=== PATIENT | male | born 1955 | race Caucasian/White ===

== ENCOUNTER 2019-11-30 12:15 | Emergency (ER) | payer MEDICAID ==
[~2019-11-30] VITALS: Ht 180.3 cm; Wt 76.7 kg
[2019-11-30] MEDS ORDERED: LIDOcaine 1% w/epiNEPHrine 1:200,000 30ml vial IJ ONE (12:45)
[2019-11-30] MEDS ORDERED: TETanus/Pertussis (Acell)/Diphther VAC/PF (Tdap-Adult) 0.5ml syringe IMVAC ONE (12:45)
[2019-11-30 15:03] VITALS: BP 114/98
== END 2019-11-30 15:05 | disposition home or self-care (01) ==
LOC: ER 12:16
DX: S01.112A Laceration without foreign body of left eyelid and periocular area, initial encounter (principal); F10.129 Alcohol abuse with intoxication, unspecified; G89.29 Other chronic pain; F12.90 Cannabis use, unspecified, uncomplicated; F17.200 Nicotine dependence, unspecified, uncomplicated; Z72.89 Other problems related to lifestyle; W18.39XA Other fall on same level, initial encounter; Y93.89 Activity, other specified; Y92.89 Other specified places as the place of occurrence of the external cause; Y99.8 Other external cause status; Y90.0 Blood alcohol level of less than 20 mg/100 ml
CPT/HCPCS: 12011; 36415; 70450; 80320; 90471; 90715; 99284

== ENCOUNTER 2020-05-13 13:37 | Emergency (ER) | payer MEDICARE, MEDICAID ==
[~2020-05-13] VITALS: Ht 170.2 cm; Wt 68.2 kg
[2020-05-13] MEDS ORDERED: normal saline 1000ML IV soln IVB ONE ×3 (15:50→18:15)
--- NOTE | 2020-05-13 15:52 | NUR ---
Pt. given sandwich and juice
[2020-05-13 15:58] LABS: BASOPHILS % (AUTO) 0.7 % (0-1); EOSINOPHILS % (AUTO) 0 % (0-6); LYMPHOCYTES # (AUTO) 1.3 X10'3 (1.1-4.8); LYMPHOCYTES % (AUTO) 20.7 % (21-51); MEAN CORPUSCULAR HEMOGLOBIN 32.8 PG (27.0-31.0); MEAN CORPUSCULAR HGB CONC 32.5 g/dL (33.0-36.5); MEAN CORPUSCULAR VOLUME 100.8 FL (78-98); MEAN PLATELET VOLUME 8.4 FL (7.4-10.4); MONOCYTES # (AUTO) 0.4 X10'3 (0-0.9); NEUTROPHILS # (AUTO) 4.5 X10'3 (1.8-7.7); NEUTROPHILS % (AUTO) 71.6 % (42-75); PLATELET COUNT 315 X10'3 (140-440); RED BLOOD COUNT 4.56 X10'6 (4.70-6.10); RED CELL DISTRIBUTION WIDTH 15.1 % (11.5-14.5); WHITE BLOOD COUNT 6.3 X10'3 (4.5-11.0)
[2020-05-13 16:20] LABS: ALANINE AMINOTRANSFERASE 24 U/L (12-78); ALBUMIN 4.7 G/DL (3.4-5.0); ALBUMIN/GLOBULIN RATIO 1.1 (1.1-1.5); ALKALINE PHOSPHATASE 85 IU/L (46-116); ANION GAP 16 (8-16); ASPARTATE AMINO TRANSFERASE 38 U/L (10-37); BILIRUBIN,TOTAL 0.4 MG/DL (0.1-1.0); BLOOD UREA NITROGEN 17 MG/DL (7-18); CHLORIDE 103 MMOL/L (99-107); CREATININE 0.85 MG/DL (0.60-1.10); GLUCOSE 86 MG/DL (70-104); POTASSIUM 5.3 MMOL/L (3.5-5.1); SODIUM 145 MMOL/L (135-145); TOTAL CARBON DIOXIDE 25.9 MMOL/L (24-32); TOTAL PROTEIN 8.9 G/DL (6.4-8.2); eGFR 90 ML/MIN
[2020-05-13 18:27] LABS: URINE AMPHETAMINE SCREEN NEGATIVE (Neg); URINE BARBITUATE SCREEN NEGATIVE (Neg); URINE BENZODIAZEPINES SCREEN NEGATIVE (Neg); URINE CANNABINOID SCREEN POSITIVE (Neg); URINE COCAINE SCREEN NEGATIVE (Neg); URINE METHADONE SCREEN NEGATIVE (Neg); URINE OPIATE SCREEN NEGATIVE (Neg); URINE PHENCYCLIDINE SCREEN NEGATIVE (Neg)
--- NOTE | 2020-05-13 18:32 | NUR ---
BROTHERS # [phone]. LIVES IN [place].
[2020-05-13 20:12] VITALS: BP 137/94
== END 2020-05-13 20:05 | disposition home or self-care (01) ==
LOC: ER 13:37
DX: M79.604 Pain in right leg (principal); M79.605 Pain in left leg; E86.0 Dehydration; G89.29 Other chronic pain; F12.90 Cannabis use, unspecified, uncomplicated; Z72.89 Other problems related to lifestyle
CPT/HCPCS: 36415; 80053; 80305; 83605; 85025; 93005; 96360; 96361; 99285; J7030

== ENCOUNTER 2020-07-18 16:10 | Emergency (ER) | payer MEDICARE, MEDICAID | END 2020-07-18 17:56 | disposition left against medical advice (07) | LOC: ER 16:11 | DX: Z53.21 Procedure and treatment not carried out due to patient leaving prior to being seen by health care provider (principal); W19.XXXA Unspecified fall, initial encounter; Y93.89 Activity, other specified; Y92.89 Other specified places as the place of occurrence of the external cause; Y99.8 Other external cause status ==

== ENCOUNTER 2020-08-23 12:13 | Emergency (ER) | payer MEDICARE, MEDICAID ==
[~2020-08-23] VITALS: Ht 182.9 cm; Wt 68.2 kg
[2020-08-23] MEDS ORDERED: LIDOcaine 1% W/epiNEPHrine 1:200,000 10ml vial IJ ONE (12:30)
[2020-08-23] MEDS ORDERED: TETanus/Pertussis (Acell)/Diphther VAC/PF (Tdap-Adult) 0.5ml syringe IMVAC ONE (12:30)
--- NOTE | 2020-08-23 12:55 | NUR ---
to ct scan.
[2020-08-23 14:37] VITALS: BP 138/96
== END 2020-08-23 14:57 | disposition home or self-care (01) ==
LOC: ER 12:14
DX: S01.01XA Laceration without foreign body of scalp, initial encounter (principal); G89.29 Other chronic pain; F12.90 Cannabis use, unspecified, uncomplicated; Z72.89 Other problems related to lifestyle; W05.0XXA Fall from non-moving wheelchair, initial encounter; Z91.81 History of falling; Y93.89 Activity, other specified; Y92.89 Other specified places as the place of occurrence of the external cause; Y99.8 Other external cause status
CPT/HCPCS: 12002; 70450; 72125; 90471; 90715; 99285

== ENCOUNTER 2020-10-22 19:39 | Inpatient (IN) | payer MEDICARE, MEDICAID ==
[~2020-10-22] VITALS: Ht 172.7 cm; Wt 68.0 kg
[2020-10-22 20:21] LABS: BASOPHILS % (AUTO) 0.1 % (0-1); EOSINOPHILS % (AUTO) 0.1 % (0-6); HEMATOCRIT 39.4 % (42.0-52.0); HEMOGLOBIN 13.1 g/dl (14.0-17.9); LYMPHOCYTES # (AUTO) 0.5 X10'3 (1.1-4.8); LYMPHOCYTES % (AUTO) 3.7 % (21-51); MEAN CORPUSCULAR HGB CONC 33.1 g/dL (33.0-36.5); MEAN CORPUSCULAR VOLUME 99.5 FL (78-98); MEAN PLATELET VOLUME 7.4 FL (7.4-10.4); MONOCYTES # (AUTO) 1.3 X10'3 (0-0.9); MONOCYTES % (AUTO) 8.6 % (2-12); NEUTROPHILS % (AUTO) 87.5 % (42-75); PLATELET COUNT 322 X10'3 (140-440); RED BLOOD COUNT 3.96 X10'6 (4.70-6.10); RED CELL DISTRIBUTION WIDTH 14.1 % (11.5-14.5); WHITE BLOOD COUNT 14.8 X10'3 (4.5-11.0)
[2020-10-22 20:46] LABS: ALANINE AMINOTRANSFERASE 11 U/L (12-78); ALBUMIN 3.3 G/DL (3.4-5.0); ALBUMIN/GLOBULIN RATIO 0.6 (1.1-1.5); ALKALINE PHOSPHATASE 76 IU/L (46-116); ANION GAP 11 (8-16); ASPARTATE AMINO TRANSFERASE 14 U/L (10-37); BILIRUBIN,TOTAL 0.4 MG/DL (0.1-1.0); BLOOD UREA NITROGEN 14 MG/DL (7-18); BUN/CREATININE RATIO 10.6 (5.4-32.0); CALCIUM 9.2 MG/DL (8.5-10.1); CHLORIDE 94 MMOL/L (99-107); CREATININE 1.32 MG/DL (0.60-1.10); GLUCOSE 98 MG/DL (70-104); POTASSIUM 3.9 MMOL/L (3.5-5.1); SODIUM 129 MMOL/L (135-145); TOTAL CARBON DIOXIDE 23.7 MMOL/L (24-32); TOTAL PROTEIN 8.8 G/DL (6.4-8.2); eGFR 54 ML/MIN
[2020-10-23] MEDS ORDERED: piperacillin/tazo 3.375gm/50ml 50 ML IV ONE (01:05)
[2020-10-23] MEDS ORDERED: normal saline 1000ML IV soln IVB ONE ×2 (01:05)
[2020-10-23] MEDS ORDERED: vancomycin/NS 1 GM ADD-VANTAGE 250 ML IV ONE (01:05)
[2020-10-23] MEDS ORDERED: morphine 4 MG/ML inj SYRINge IV ONE (01:10)
[2020-10-23] MEDS ORDERED: ondansetron/PF 4mg/2ml inj IV ONE (01:10)
[2020-10-23] MEDS ORDERED: acetaminophen 325mg tablet PO PRN (02:00)
[2020-10-23] MEDS: normal saline 1000ml 1,000 ML IV SCH ×3 (02:00→22:00)
[2020-10-23] MEDS ORDERED: potassium Cl 40MEQ/1/2NS 520ml 520 ML IV PRN ×2 (02:00)
[2020-10-23] MEDS ORDERED: potassium Cl 20 mEq SR tablet PO PRN (02:00)
[2020-10-23] MEDS ORDERED: ondansetron/PF 4mg/2ml inj IV PRN (02:00)
[2020-10-23] MEDS ORDERED: magnesium hydroxide 30ml (MOM) UD suspension PO PRN (02:00)
[2020-10-23] MEDS ORDERED: mag hydrox/Alum hydrox/simeth 30ml oral suspension PO PRN (02:00)
[2020-10-23] MEDS ORDERED: thiamine 100mg/ml 2ml inj. IV ONE (02:10)
[2020-10-23] MEDS ORDERED: PANT20TA18 PO (02:51)
[2020-10-23] MEDS ORDERED: SILV25CR21 TOP (02:51)
[2020-10-23] MEDS ORDERED: AMIT10TA6 PO (02:51)
[2020-10-23] MEDS ORDERED: ALPR-624 PO (02:53)
[2020-10-23] MEDS ORDERED: AMIT-189 PO (02:53)
--- NOTE | 2020-10-23 05:05 | NUR ---
ROUNDED ON PT; PT IN NAD WITH VSS; PT RESTING COMFORTABLY; WILL CTM AND REASSESS
[2020-10-23 05:17] LABS: COLOR,URINE YELLOW (Yellow); UA COLLECTION TYPE VOIDED
[2020-10-23 05:18] LABS: CLARITY,URINE CLEAR (Clear); GLUCOSE, URINE NEGATIVE (Neg); KETONES,URINE NEGATIVE (Neg); OCCULT BLOOD,URINE NEGATIVE (Neg); PH,URINE 6.5 (4.8-8.0); PROTEIN,URINE NEGATIVE (Neg)
[2020-10-23 05:19] LABS: LEUKOCYTE ESTERASE ,URINE NEGATIVE (Neg); NITRITES, URINE NEGATIVE (Neg); UROBILINOGEN,URINE 0.2 E.U/dL (0.2-1.0)
[2020-10-23] MEDS: morphine 2 MG/ML inj. syringe IV PRN ×2 (07:17→21:37)
[2020-10-23] MEDS: K and/or MAG REPLACEMENT MC SCH ×2 (07:30→19:59)
[2020-10-23] MEDS: docusate sod 100mg capsule PO SCH ×2 (07:46→20:00)
[2020-10-23] MEDS: piperacillin/tazo 3.375gm/50ml 50 ML IV SCH ×2 (07:46→16:46)
[2020-10-23] MEDS: pantoprazole 40mg Tablet.DR PO SCH (07:46)
[2020-10-23] MEDS: heparin, porcine 5000 units/ml vial SQ SCH ×2 (07:46→21:38)
[2020-10-23] MEDS: vancomycin/NS 1 GM ADD-VANTAGE 250 ML IV SCH (14:41)
[2020-10-23 18:00] VITALS: BP 144/79
[2020-10-23] MEDS: lactobacillus rhamnosus 10,000 MMU CELLS/CAPSULE PO SCH (21:36)
[2020-10-23] MEDS: amitriptyline 50mg tablet PO SCH (21:36)
[2020-10-23] MEDS ORDERED: vancomycin/NS 1 GM ADD-VANTAGE 250 ML IV SCH (23:00)
[2020-10-23 23:25] VITALS: BP 149/85
[2020-10-24] MEDS: piperacillin/tazo 3.375gm/50ml 50 ML IV SCH ×3 (01:00→17:35)
[2020-10-24] MEDS: vancomycin/NS 1 GM ADD-VANTAGE 250 ML IV SCH ×3 (02:27→21:52)
[2020-10-24 06:47] LABS: BASOPHILS % (AUTO) 0.3 % (0-1); EOSINOPHILS # (AUTO) 0.1 X10'3 (0-0.9); EOSINOPHILS % (AUTO) 0.4 % (0-6); HEMATOCRIT 33.5 % (42.0-52.0); LYMPHOCYTES # (AUTO) 0.5 X10'3 (1.1-4.8); LYMPHOCYTES % (AUTO) 4.1 % (21-51); MEAN CORPUSCULAR HEMOGLOBIN 32.9 PG (27.0-31.0); MEAN CORPUSCULAR HGB CONC 32.9 g/dL (33.0-36.5); MEAN PLATELET VOLUME 7.5 FL (7.4-10.4); MONOCYTES # (AUTO) 1.5 X10'3 (0-0.9); MONOCYTES % (AUTO) 11.4 % (2-12); NEUTROPHILS # (AUTO) 10.6 X10'3 (1.8-7.7); NEUTROPHILS % (AUTO) 83.8 % (42-75); PLATELET COUNT 279 X10'3 (140-440); RED BLOOD COUNT 3.35 X10'6 (4.70-6.10); RED CELL DISTRIBUTION WIDTH 14.2 % (11.5-14.5); WHITE BLOOD COUNT 12.7 X10'3 (4.5-11.0)
--- NOTE | 2020-10-24 06:53 | NUR ---
Patient in room [facility]. I have received report from Florinda CARO and had the opportunity to ask questions and assume patient care.
--- NOTE | 2020-10-24 06:54 | NUR ---
Problems reprioritized. Patient report given, questions answered & plan of care reviewed with Kimmie CARO.
[2020-10-24 06:59] LABS: ALANINE AMINOTRANSFERASE 9 U/L (12-78); ALBUMIN/GLOBULIN RATIO 0.5 (1.1-1.5); ALKALINE PHOSPHATASE 68 IU/L (46-116); ANION GAP 10 (8-16); ASPARTATE AMINO TRANSFERASE 18 U/L (10-37); BILIRUBIN,TOTAL 0.4 MG/DL (0.1-1.0); BLOOD UREA NITROGEN 6 MG/DL (7-18); BUN/CREATININE RATIO 10.5 (5.4-32.0); CALCIUM 8.2 MG/DL (8.5-10.1); CHLORIDE 101 MMOL/L (99-107); CREATININE 0.57 MG/DL (0.60-1.10); GLUCOSE 89 MG/DL (70-104); POTASSIUM 3.4 MMOL/L (3.5-5.1); SODIUM 134 MMOL/L (135-145); TOTAL CARBON DIOXIDE 23.5 MMOL/L (24-32); TOTAL PROTEIN 6.3 G/DL (6.4-8.2); eGFR > 90 ML/MIN
--- NOTE | 2020-10-24 07:02 | NUR ---
Assumed patient care. Did not receive report.
--- NOTE | 2020-10-24 07:05 | NUR ---
Patient in room [facility]. I have received report from Kimmie CARO and had the opportunity to ask questions and assume patient care.
[2020-10-24] MEDS: morphine 2 MG/ML inj. syringe IV PRN ×4 (07:32→21:41)
[2020-10-24] MEDS: heparin, porcine 5000 units/ml vial SQ SCH ×2 (07:34→21:13)
[2020-10-24] MEDS: docusate sod 100mg capsule PO SCH ×2 (07:35→21:10)
[2020-10-24] MEDS: lactobacillus rhamnosus 10,000 MMU CELLS/CAPSULE PO SCH ×2 (07:35→20:00)
[2020-10-24] MEDS: potassium Cl 20 mEq SR tablet PO PRN ×2 (07:36→16:51)
[2020-10-24] MEDS: pantoprazole 40mg Tablet.DR PO SCH (07:36)
[2020-10-24 08:00] VITALS: BP 140/76
[2020-10-24] MEDS: K and/or MAG REPLACEMENT MC SCH ×2 (08:16→19:02)
[2020-10-24] MEDS: normal saline 1000ml 1,000 ML IV SCH ×2 (08:17→18:00)
--- NOTE | 2020-10-24 10:34 | NUR ---
PAGER ID: [phone] MESSAGE: Tyree Owen room 352A has previously had metal in his eye. MRI is requesting an orbital xray to confirm it has been removed. Thanks Letty ext [phone]
--- NOTE | 2020-10-24 11:02 | NUR ---
Page sent to ay: patient Tyree Owen Room 352A is in the wheelchair and ready to go. Letty ext [phone]
--- NOTE | 2020-10-24 12:03 | NUR ---
patient was not on the floor for 11am vitals.
--- NOTE | 2020-10-24 12:24 | NUR ---
Problems reprioritized. Patient report given, questions answered & plan of care reviewed with Kimmie CARO.
--- NOTE | 2020-10-24 12:30 | NUR ---
Patient in room [facility]. I have received report from Letty CARO with Kimmie CARO and had the opportunity to ask questions and assume patient care.
[2020-10-24] MEDS ORDERED: VANCOMYCIN LEVEL IV ONE (13:30)
[2020-10-24] MEDS ORDERED: iohexol 300mg/ml 100ml inj. ONE (15:43)
[2020-10-24] MEDS ORDERED: pneumococcal 23-VAL P-sac vacc 25 mcg/0.5ml vial IMVAC ONE (17:50)
--- NOTE | 2020-10-24 18:10 | NUR ---
patient anxious at times not able to keep leg still enough for MRI. DR funez contacted and CT with contrast ordered. patient stated when back on floor that he felt with a slower process of going to MRI that he would be able to keep leg still. will review in am. Morphine given for pain x2 with effect. IV resited by erlin lópez. patient continues on vanco and zosyn ABX.
--- NOTE | 2020-10-24 18:20 | NUR ---
Problems reprioritized. Patient report given to William CARO, questions answered & plan of care reviewed with .
--- NOTE | 2020-10-24 19:03 | NUR ---
per report patient received 2 20 meq for K of 3.4, unsure if patient received third replacement (elected to hold, unless notified by nurse responsible for first dose.
[2020-10-24] MEDS: amitriptyline 50mg tablet PO SCH (21:11)
[2020-10-25] VITALS: BP 146/82
[2020-10-25] MEDS ORDERED: LORazepam 1 MG tablet PO PRN (02:10)
[2020-10-25] MEDS ORDERED: LORazepam 2 mg/ml vial IV PRN (02:10)
[2020-10-25] MEDS: piperacillin/tazo 3.375gm/50ml 50 ML IV SCH (03:46)
[2020-10-25] MEDS: normal saline 1000ml 1,000 ML IV SCH ×3 (04:00→23:48)
[2020-10-25] MEDS ORDERED: piperacillin/tazo 3.375gm/50ml 50 ML IV SCH (04:31)
--- NOTE | 2020-10-25 06:14 | NUR ---
Problems reprioritized. Patient report given, questions answered & plan of care reviewed with Kimmie CARO.
[2020-10-25] MEDS: vancomycin/NS 1 GM ADD-VANTAGE 250 ML IV SCH ×2 (06:17→15:01)
[2020-10-25 06:24] LABS: BASOPHILS % (AUTO) 0.2 % (0-1); EOSINOPHILS # (AUTO) 0.1 X10'3 (0-0.9); EOSINOPHILS % (AUTO) 0.4 % (0-6); HEMATOCRIT 32.1 % (42.0-52.0); HEMOGLOBIN 10.7 g/dl (14.0-17.9); LYMPHOCYTES # (AUTO) 0.8 X10'3 (1.1-4.8); LYMPHOCYTES % (AUTO) 4.9 % (21-51); MEAN CORPUSCULAR HGB CONC 33.4 g/dL (33.0-36.5); MEAN CORPUSCULAR VOLUME 98.9 FL (78-98); MEAN PLATELET VOLUME 7.6 FL (7.4-10.4); MONOCYTES # (AUTO) 1.6 X10'3 (0-0.9); MONOCYTES % (AUTO) 10.3 % (2-12); NEUTROPHILS % (AUTO) 84.2 % (42-75); PLATELET COUNT 337 X10'3 (140-440); RED BLOOD COUNT 3.25 X10'6 (4.70-6.10); RED CELL DISTRIBUTION WIDTH 14.5 % (11.5-14.5); WHITE BLOOD COUNT 15.5 X10'3 (4.5-11.0)
[2020-10-25 06:48] LABS: ALANINE AMINOTRANSFERASE 10 U/L (12-78); ALBUMIN/GLOBULIN RATIO 0.4 (1.1-1.5); ALKALINE PHOSPHATASE 92 IU/L (46-116); ANION GAP 9 (8-16); ASPARTATE AMINO TRANSFERASE 20 U/L (10-37); BILIRUBIN,TOTAL 0.6 MG/DL (0.1-1.0); BLOOD UREA NITROGEN 5 MG/DL (7-18); BUN/CREATININE RATIO 7.7 (5.4-32.0); CALCIUM 8.2 MG/DL (8.5-10.1); CHLORIDE 99 MMOL/L (99-107); CREATININE 0.65 MG/DL (0.60-1.10); GLUCOSE 84 MG/DL (70-104); POTASSIUM 3.6 MMOL/L (3.5-5.1); SODIUM 133 MMOL/L (135-145); TOTAL CARBON DIOXIDE 25.2 MMOL/L (24-32); TOTAL PROTEIN 6.7 G/DL (6.4-8.2); eGFR > 90 ML/MIN
[2020-10-25 07:00] VITALS: BP 143/75
[2020-10-25] MEDS: pantoprazole 40mg Tablet.DR PO SCH (07:55)
[2020-10-25] MEDS: docusate sod 100mg capsule PO SCH ×2 (07:55→20:30)
[2020-10-25] MEDS: lactobacillus rhamnosus 10,000 MMU CELLS/CAPSULE PO SCH ×2 (07:55→20:30)
[2020-10-25] MEDS: morphine 2 MG/ML inj. syringe IV PRN ×3 (07:56→20:32)
[2020-10-25] MEDS: heparin, porcine 5000 units/ml vial SQ SCH ×2 (07:57→20:31)
[2020-10-25] MEDS: K and/or MAG REPLACEMENT MC SCH ×2 (08:00→20:00)
[2020-10-25 11:51] VITALS: BP 116/79
[2020-10-25] MEDS ORDERED: VANCOMYCIN LEVEL IV ONE (13:30)
--- NOTE | 2020-10-25 17:52 | NUR ---
patient stable for shift. pictures taken of right ankle redressed. wound consult in. morphine for pain with good effect. Pt suggested ortho consult for patient. Dr funez paged. stated patient is at baseline so not necessary. All cares given to patient .Report given to ulke CARO
[2020-10-25 19:00] VITALS: BP 157/81
[2020-10-25] MEDS: amitriptyline 50mg tablet PO SCH (20:30)
[2020-10-25] MEDS ORDERED: VANCOmycin 1250MG/NS 250ml Bag 250 ML IV SCH (22:00)
[2020-10-25] MEDS: cefazolin/dext.iso 2gm/100ml 100 ML IV SCH (23:43)
[2020-10-26] VITALS: BP 140/75
[2020-10-26] MEDS: morphine 2 MG/ML inj. syringe IV PRN ×4 (02:31→20:46)
[2020-10-26 06:22] LABS: BASOPHILS # (AUTO) 0.1 X10'3 (0-0.2); BASOPHILS % (AUTO) 0.5 % (0-1); EOSINOPHILS # (AUTO) 0.1 X10'3 (0-0.9); EOSINOPHILS % (AUTO) 0.7 % (0-6); HEMOGLOBIN 10.1 g/dl (14.0-17.9); LYMPHOCYTES # (AUTO) 0.8 X10'3 (1.1-4.8); LYMPHOCYTES % (AUTO) 7.2 % (21-51); MEAN CORPUSCULAR HEMOGLOBIN 33.1 PG (27.0-31.0); MEAN CORPUSCULAR HGB CONC 33.7 g/dL (33.0-36.5); MEAN CORPUSCULAR VOLUME 98.2 FL (78-98); MEAN PLATELET VOLUME 7.6 FL (7.4-10.4); MONOCYTES # (AUTO) 1.1 X10'3 (0-0.9); MONOCYTES % (AUTO) 9.3 % (2-12); NEUTROPHILS # (AUTO) 9.5 X10'3 (1.8-7.7); NEUTROPHILS % (AUTO) 82.3 % (42-75); PLATELET COUNT 381 X10'3 (140-440); RED BLOOD COUNT 3.06 X10'6 (4.70-6.10); RED CELL DISTRIBUTION WIDTH 14.3 % (11.5-14.5); WHITE BLOOD COUNT 11.5 X10'3 (4.5-11.0)
--- NOTE | 2020-10-26 06:27 | NUR ---
Problems reprioritized. Patient report given, questions answered & plan of care reviewed with TARA. Addendum: 10/26/20 at 0627 by Josh Mark RN Amended: Links added.
[2020-10-26 06:28] LABS: ALANINE AMINOTRANSFERASE 32 U/L (12-78); ALBUMIN 1.8 G/DL (3.4-5.0); ALBUMIN/GLOBULIN RATIO 0.4 (1.1-1.5); ALKALINE PHOSPHATASE 83 IU/L (46-116); ANION GAP 6 (8-16); ASPARTATE AMINO TRANSFERASE 46 U/L (10-37); BILIRUBIN,TOTAL 0.3 MG/DL (0.1-1.0); BLOOD UREA NITROGEN 3 MG/DL (7-18); BUN/CREATININE RATIO 4.5 (5.4-32.0); CALCIUM 7.8 MG/DL (8.5-10.1); CHLORIDE 103 MMOL/L (99-107); CREATININE 0.67 MG/DL (0.60-1.10); GLUCOSE 89 MG/DL (70-104); POTASSIUM 3.5 MMOL/L (3.5-5.1); SODIUM 136 MMOL/L (135-145); TOTAL CARBON DIOXIDE 26.7 MMOL/L (24-32); TOTAL PROTEIN 6.4 G/DL (6.4-8.2); eGFR > 90 ML/MIN
--- NOTE | 2020-10-26 06:33 | NUR ---
Patient in room [facility]. I have received report from ROCÍO CARO and had the opportunity to ask questions and assume patient care.
[2020-10-26] MEDS: K and/or MAG REPLACEMENT MC SCH ×2 (08:00→20:00)
[2020-10-26] MEDS: lactobacillus rhamnosus 10,000 MMU CELLS/CAPSULE PO SCH ×2 (08:30→20:29)
[2020-10-26] MEDS: pantoprazole 40mg Tablet.DR PO SCH (08:31)
[2020-10-26] MEDS: heparin, porcine 5000 units/ml vial SQ SCH ×2 (08:32→20:30)
[2020-10-26] MEDS: cefazolin/dext.iso 2gm/100ml 100 ML IV SCH ×3 (08:32→23:44)
[2020-10-26] MEDS: docusate sod 100mg capsule PO SCH ×2 (08:51→20:29)
[2020-10-26 09:08] VITALS: BP 156/89
[2020-10-26 11:00] VITALS: BP 138/79
[2020-10-26] MEDS: normal saline 1000ml 1,000 ML IV SCH ×2 (16:17→20:00)
[2020-10-26 18:00] VITALS: BP 158/88
--- NOTE | 2020-10-26 18:01 | NUR ---
patient working with PT with [place] [facility] [place] see note. seen by DR Martinez and Dr Murphy. wound team consulted on wound to right ankle. see new orders. Morphine 2mg given q4hrly for pain with effect. BM today. all cares continue. report given to Tierney CARO Addendum: 10/26/20 at 1847 by Kimmie Sands RN Problems reprioritized. Patient report given, questions answered & plan of care reviewed with mary ellen CARO.
--- NOTE | 2020-10-26 18:18 | NUR ---
Patient in room [facility]. I have received report from Kimmie CARO and practical nursing faculty Mauri and had the opportunity to ask questions and assume patient care.
[2020-10-26] MEDS: amitriptyline 50mg tablet PO SCH (20:30)
[2020-10-26] MEDS ORDERED: VANCOMYCIN LEVEL IV ONE (21:30)
[2020-10-27] VITALS: BP 140/85
[2020-10-27] MEDS ORDERED: LORazepam 1 MG tablet PO PRN (02:10)
[2020-10-27] MEDS: morphine 2 MG/ML inj. syringe IV PRN (05:10)
[2020-10-27] MEDS: normal saline 1000ml 1,000 ML IV SCH (05:23)
[2020-10-27 06:52] LABS: BASOPHILS % (AUTO) 0.3 % (0-1); EOSINOPHILS # (AUTO) 0.1 X10'3 (0-0.9); EOSINOPHILS % (AUTO) 1.4 % (0-6); HEMATOCRIT 31.5 % (42.0-52.0); HEMOGLOBIN 10.6 g/dl (14.0-17.9); LYMPHOCYTES # (AUTO) 0.8 X10'3 (1.1-4.8); LYMPHOCYTES % (AUTO) 10.2 % (21-51); MEAN CORPUSCULAR HEMOGLOBIN 33.6 PG (27.0-31.0); MEAN CORPUSCULAR HGB CONC 33.7 g/dL (33.0-36.5); MEAN CORPUSCULAR VOLUME 99.7 FL (78-98); MEAN PLATELET VOLUME 7.3 FL (7.4-10.4); MONOCYTES # (AUTO) 0.9 X10'3 (0-0.9); MONOCYTES % (AUTO) 11.5 % (2-12); NEUTROPHILS # (AUTO) 5.8 X10'3 (1.8-7.7); NEUTROPHILS % (AUTO) 76.6 % (42-75); PLATELET COUNT 476 X10'3 (140-440); RED BLOOD COUNT 3.16 X10'6 (4.70-6.10); RED CELL DISTRIBUTION WIDTH 14.5 % (11.5-14.5); WHITE BLOOD COUNT 7.6 X10'3 (4.5-11.0)
--- NOTE | 2020-10-27 07:00 | NUR ---
Problems reprioritized. Patient report given, questions answered & plan of care reviewed with Katrin CARO.
[2020-10-27 07:29] LABS: ALANINE AMINOTRANSFERASE 40 U/L (12-78); ALBUMIN/GLOBULIN RATIO 0.4 (1.1-1.5); ALKALINE PHOSPHATASE 82 IU/L (46-116); ANION GAP 11 (8-16); ASPARTATE AMINO TRANSFERASE 58 U/L (10-37); BILIRUBIN,TOTAL 0.3 MG/DL (0.1-1.0); BLOOD UREA NITROGEN 4 MG/DL (7-18); BUN/CREATININE RATIO 6.1 (5.4-32.0); CALCIUM 8.4 MG/DL (8.5-10.1); CHLORIDE 102 MMOL/L (99-107); CREATININE 0.66 MG/DL (0.60-1.10); GLUCOSE 91 MG/DL (70-104); POTASSIUM 3.5 MMOL/L (3.5-5.1); SODIUM 138 MMOL/L (135-145); TOTAL CARBON DIOXIDE 25.3 MMOL/L (24-32); TOTAL PROTEIN 7.1 G/DL (6.4-8.2); eGFR > 90 ML/MIN
[2020-10-27] MEDS: pantoprazole 40mg Tablet.DR PO SCH (07:30)
[2020-10-27] MEDS: heparin, porcine 5000 units/ml vial SQ SCH (08:00)
[2020-10-27] MEDS: K and/or MAG REPLACEMENT MC SCH (08:00)
[2020-10-27] MEDS: lactobacillus rhamnosus 10,000 MMU CELLS/CAPSULE PO SCH (08:51)
[2020-10-27] MEDS: docusate sod 100mg capsule PO SCH (08:51)
[2020-10-27] MEDS: cefazolin/dext.iso 2gm/100ml 100 ML IV SCH (09:06)
[2020-10-27] MEDS ORDERED: HYDR-3965 PO (09:35)
[2020-10-27] MEDS ORDERED: CEPH500C2 PO (10:19)
== END 2020-10-27 13:24 | disposition home health service (06) | DRG 872 ==
LOC: ER 19:40 → ED HOLD 10-23 02:00 → SUR 3N 10-23 23:10
PROVIDERS: ADMIT Internal Medicine; ATTEND Internal Medicine
PROC: 3E0234Z Introduction of Serum, Toxoid and Vaccine into Muscle, Percutaneous Approach (ICD-10-PCS; principal; 2020-10-24)
PROC: BQ2R1ZZ Computerized Tomography (CT Scan) of Right Lower Extremity using Low Osmolar Contrast (ICD-10-PCS; 2020-10-24)
DX: A40.0 Sepsis due to streptococcus, group A (principal); L03.115 Cellulitis of right lower limb; E87.1 Hypo-osmolality and hyponatremia; N17.9 Acute kidney failure, unspecified; F17.200 Nicotine dependence, unspecified, uncomplicated; F12.90 Cannabis use, unspecified, uncomplicated; G89.29 Other chronic pain; S90.911A Unspecified superficial injury of right ankle, initial encounter; X58.XXXA Exposure to other specified factors, initial encounter; K21.9 Gastro-esophageal reflux disease without esophagitis; G62.9 Polyneuropathy, unspecified; Z87.11 Personal history of peptic ulcer disease; Z99.3 Dependence on wheelchair; Z23 Encounter for immunization; Y93.89 Activity, other specified; Y92.89 Other specified places as the place of occurrence of the external cause; Y99.8 Other external cause status
CPT/HCPCS: 36415; 70140; 71045; 73502; 73600; 73701; 80053; 80202; 81003; 83605; 84145; 85025; 85651; 86140; 87040; 87077; 87081; 87186; 90732; 97161; 97530; 99285; G0378; J1644; J2270; J2405; J2543; J3370; J3411; J7030; Q9967

== ENCOUNTER 2020-10-29 12:17 | Emergency (ER) | payer MEDICARE, MEDICAID ==
[~2020-10-29] VITALS: Ht 177.8 cm; Wt 69.1 kg
[~2020-10-29 12:17] MED LIST: AMIT-189 PO; CEPH500C2 PO; HYDR-3965 PO; PANT20TA18 PO; SILV25CR21 TOP
[2020-10-29] MEDS ORDERED: normal saline 1000ML IV soln IV ONE (13:05)
[2020-10-29 13:28] LABS: BASOPHILS # (AUTO) 0.1 X10'3 (0-0.2); EOSINOPHILS # (AUTO) 0.1 X10'3 (0-0.9); MONOCYTES # (AUTO) 0.7 X10'3 (0-0.9); MONOCYTES % (AUTO) 9.8 % (2-12); NEUTROPHILS # (AUTO) 5.1 X10'3 (1.8-7.7); RED CELL DISTRIBUTION WIDTH 14.6 % (11.5-14.5)
[2020-10-29 13:30] LABS: BASOPHILS % (AUTO) 0.8 % (0-1); EOSINOPHILS % (AUTO) 1.6 % (0-6); HEMATOCRIT 33.8 % (42.0-52.0); HEMOGLOBIN 11.4 g/dl (14.0-17.9); LYMPHOCYTES % (AUTO) 14.8 % (21-51); MEAN CORPUSCULAR HEMOGLOBIN 33.7 PG (27.0-31.0); MEAN CORPUSCULAR HGB CONC 33.6 g/dL (33.0-36.5); MEAN CORPUSCULAR VOLUME 100.1 FL (78-98); MEAN PLATELET VOLUME 6.7 FL (7.4-10.4); PLATELET COUNT 597 X10'3 (140-440); RED BLOOD COUNT 3.38 X10'6 (4.70-6.10)
[2020-10-29 13:44] LABS: ALANINE AMINOTRANSFERASE 47 U/L (12-78); ALBUMIN 2.4 G/DL (3.4-5.0); ALBUMIN/GLOBULIN RATIO 0.4 (1.1-1.5); ALKALINE PHOSPHATASE 79 IU/L (46-116); ANION GAP 7 (8-16); ASPARTATE AMINO TRANSFERASE 46 U/L (10-37); BILIRUBIN,TOTAL 0.2 MG/DL (0.1-1.0); BLOOD UREA NITROGEN 4 MG/DL (7-18); BUN/CREATININE RATIO 6.6 (5.4-32.0); CALCIUM 8.5 MG/DL (8.5-10.1); CHLORIDE 104 MMOL/L (99-107); CREATININE 0.61 MG/DL (0.60-1.10); ETHANOL 0.154 GM/DL (0.0-0.010); GLUCOSE 78 MG/DL (70-104); MAGNESIUM 2.1 MG/DL (1.5-2.4); POTASSIUM 4.3 MMOL/L (3.5-5.1); SODIUM 137 MMOL/L (135-145); TOTAL CARBON DIOXIDE 26.2 MMOL/L (24-32); TOTAL PROTEIN 8.1 G/DL (6.4-8.2); eGFR > 90 ML/MIN
[2020-10-29] MEDS ORDERED: normal saline 1000ML IV soln IVB ONE (14:55)
[2020-10-29] MEDS ORDERED: CefTRIAXone/D5W-Rocephin 1gm 50 ML IV ONE (15:00)
[2020-10-29] MEDS ORDERED: vancomycin/NS 1 GM ADD-VANTAGE 250 ML IV ONE (15:00)
[2020-10-29 15:07] LABS: PARTIAL THROMBOPLASTIN TIME 32 SECONDS (22-32)
[2020-10-29 15:16] LABS: CLARITY,URINE CLEAR (Clear); COLOR,URINE STRAW (Yellow); GLUCOSE, URINE NEGATIVE (Neg); KETONES,URINE NEGATIVE (Neg); OCCULT BLOOD,URINE NEGATIVE (Neg); PROTEIN,URINE NEGATIVE (Neg); UA COLLECTION TYPE VOIDED
[2020-10-29 15:17] LABS: LEUKOCYTE ESTERASE ,URINE NEGATIVE (Neg); NITRITES, URINE NEGATIVE (Neg); UROBILINOGEN,URINE 0.2 E.U/dL (0.2-1.0)
[2020-10-29] MEDS ORDERED: ketorolac tromethamine 15mg/ml inj. IV ONE (15:45)
[2020-10-29] MEDS ORDERED: CEPH-585 PO (18:13)
--- NOTE | 2020-10-29 18:21 | NUR ---
ELIZABET Carlos at bedside to explain DC/Rx instructions to patient, per PA LLE looks more swollen than admission. 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 DC instructions given, pat signed paper work.
[2020-10-29 19:09] VITALS: BP 142/90
== END 2020-10-29 19:11 | disposition home or self-care (01) ==
LOC: ER 12:17
DX: L03.115 Cellulitis of right lower limb (principal); I95.9 Hypotension, unspecified; K21.9 Gastro-esophageal reflux disease without esophagitis; G89.29 Other chronic pain; F12.90 Cannabis use, unspecified, uncomplicated; Z48.00 Encounter for change or removal of nonsurgical wound dressing; Z72.89 Other problems related to lifestyle; Z79.2 Long term (current) use of antibiotics; Z79.899 Other long term (current) drug therapy
CPT/HCPCS: 36415; 73610; 80053; 80320; 81003; 83605; 83735; 84145; 85025; 85610; 85651; 85730; 87040; 93971; 96361; 96365; 96375; 99285; J0696; J1885; J3370; J7030

== ENCOUNTER 2020-11-04 12:22 | Emergency (ER) | payer MEDICARE, MEDICAID ==
[~2020-11-04] VITALS: Ht 177.8 cm; Wt 68.2 kg
[~2020-11-04 12:22] MED LIST changes: +CEPH-585 PO
[2020-11-04 13:20] LABS: HEMATOCRIT 33.3 % (42.0-52.0); HEMOGLOBIN 11.1 g/dl (14.0-17.9); MEAN CORPUSCULAR HEMOGLOBIN 33.1 PG (27.0-31.0); MEAN CORPUSCULAR HGB CONC 33.4 g/dL (33.0-36.5)
[2020-11-04 13:22] LABS: BASOPHILS % (AUTO) 0.4 % (0-1); EOSINOPHILS % (AUTO) 0.4 % (0-6); MEAN CORPUSCULAR VOLUME 98.9 FL (78-98); MONOCYTES % (AUTO) 9.6 % (2-12); NEUTROPHILS # (AUTO) 7.9 X10'3 (1.8-7.7); NEUTROPHILS % (AUTO) 79.6 % (42-75); PLATELET COUNT 672 X10'3 (140-440); RED BLOOD COUNT 3.37 X10'6 (4.70-6.10); RED CELL DISTRIBUTION WIDTH 14.7 % (11.5-14.5); WHITE BLOOD COUNT 9.9 X10'3 (4.5-11.0)
[2020-11-04 13:30] LABS: ALANINE AMINOTRANSFERASE 25 U/L (12-78); ALBUMIN/GLOBULIN RATIO 0.5 (1.1-1.5); ALKALINE PHOSPHATASE 67 IU/L (46-116); ANION GAP 9 (8-16); ASPARTATE AMINO TRANSFERASE 21 U/L (10-37); BILIRUBIN,TOTAL 0.3 MG/DL (0.1-1.0); BLOOD UREA NITROGEN 10 MG/DL (7-18); BUN/CREATININE RATIO 15.6 (5.4-32.0); CHLORIDE 96 MMOL/L (99-107); CREATININE 0.64 MG/DL (0.60-1.10); GLUCOSE 92 MG/DL (70-104); POTASSIUM 4.7 MMOL/L (3.5-5.1); SODIUM 132 MMOL/L (135-145); TOTAL CARBON DIOXIDE 27.3 MMOL/L (24-32); TOTAL PROTEIN 8.8 G/DL (6.4-8.2); eGFR > 90 ML/MIN
[2020-11-04] MEDS ORDERED: acetaminophen 325mg tablet PO ONE (16:05)
[2020-11-04] MEDS ORDERED: ketorolac tromethamine 15mg/ml inj. IM ONE (16:05)
== END 2020-11-04 16:21 | disposition home or self-care (01) ==
LOC: ER 12:22
DX: S80.921D Unspecified superficial injury of right lower leg, subsequent encounter (principal); M79.604 Pain in right leg; K21.9 Gastro-esophageal reflux disease without esophagitis; G89.29 Other chronic pain; F12.90 Cannabis use, unspecified, uncomplicated; Z72.89 Other problems related to lifestyle; Z98.890 Other specified postprocedural states; Z79.2 Long term (current) use of antibiotics; Z79.899 Other long term (current) drug therapy; X58.XXXD Exposure to other specified factors, subsequent encounter
CPT/HCPCS: 36415; 80053; 83605; 84145; 85025; 87040; 96372; 99283; J1885

== ENCOUNTER 2020-11-16 14:09 | Inpatient (IN) | payer MEDICARE, MEDICAID ==
[~2020-11-16] VITALS: Ht 180.3 cm; Wt 68.2 kg
[~2020-11-16 14:09] MED LIST changes: -CEPH-585 PO
--- NOTE | 2020-11-16 16:06 | NUR ---
patient used urinal when 1st placed in room
[2020-11-16] MEDS ORDERED: normal saline 1000ml 1,000 ML IV ONE (16:50)
[2020-11-16] MEDS ORDERED: piperacillin/tazo 3.375gm/50ml 50 ML IV ONE (16:50)
[2020-11-16] MEDS ORDERED: vancomycin/NS 1 GM ADD-VANTAGE 250 ML IV ONE (16:50)
[2020-11-16] MEDS ORDERED: morphine 4 MG/ML inj SYRINge IV ONE (16:50)
[2020-11-16] MEDS ORDERED: HYDROcodone/acetaminophen 10/325mg tab PO ONE (16:50)
[2020-11-16 17:23] LABS: BASOPHILS % (AUTO) 0.2 % (0-1); EOSINOPHILS % (AUTO) 0.2 % (0-6); HEMATOCRIT 32.5 % (42.0-52.0); HEMOGLOBIN 11.2 g/dl (14.0-17.9); LYMPHOCYTES # (AUTO) 1.1 X10'3 (1.1-4.8); LYMPHOCYTES % (AUTO) 16.4 % (21-51); MEAN CORPUSCULAR HEMOGLOBIN 32.8 PG (27.0-31.0); MEAN CORPUSCULAR HGB CONC 34.3 g/dL (33.0-36.5); MEAN CORPUSCULAR VOLUME 95.6 FL (78-98); MEAN PLATELET VOLUME 7.8 FL (7.4-10.4); MONOCYTES # (AUTO) 0.8 X10'3 (0-0.9); MONOCYTES % (AUTO) 12.3 % (2-12); NEUTROPHILS # (AUTO) 4.8 X10'3 (1.8-7.7); NEUTROPHILS % (AUTO) 70.9 % (42-75); PLATELET COUNT 282 X10'3 (140-440); RED CELL DISTRIBUTION WIDTH 14.2 % (11.5-14.5); WHITE BLOOD COUNT 6.7 X10'3 (4.5-11.0)
[2020-11-16 17:35] LABS: ALANINE AMINOTRANSFERASE 14 U/L (12-78); ALBUMIN 3.5 G/DL (3.4-5.0); ALBUMIN/GLOBULIN RATIO 0.6 (1.1-1.5); ALKALINE PHOSPHATASE 71 IU/L (46-116); ANION GAP 10 (8-16); ASPARTATE AMINO TRANSFERASE 20 U/L (10-37); BILIRUBIN,TOTAL 0.3 MG/DL (0.1-1.0); BLOOD UREA NITROGEN 9 MG/DL (7-18); CALCIUM 9.2 MG/DL (8.5-10.1); CHLORIDE 98 MMOL/L (99-107); GLUCOSE 86 MG/DL (70-104); SODIUM 134 MMOL/L (135-145); TOTAL CARBON DIOXIDE 25.9 MMOL/L (24-32); TOTAL PROTEIN 9.1 G/DL (6.4-8.2); eGFR 84 ML/MIN
[2020-11-16] MEDS ORDERED: SULF1TAB45 PO (18:54)
[2020-11-16] MEDS ORDERED: IBUP-1985 PO (18:54)
[2020-11-16] MEDS ORDERED: potassium Cl 40MEQ/1/2NS 520ml 520 ML IV PRN ×2 (19:20)
[2020-11-16] MEDS ORDERED: potassium Cl 20 mEq SR tablet PO PRN ×2 (19:20)
[2020-11-16] MEDS ORDERED: magnesium 4gm in 100ml NS 100 ML IV PRN (19:20)
[2020-11-16] MEDS ORDERED: magnesium Cl slow-release 64mg tablet PO PRN (19:20)
[2020-11-16] MEDS ORDERED: acetaminophen 325mg tablet PO PRN (19:20)
[2020-11-16] MEDS ORDERED: magnesium 2GM in 50ml NS 50 ML IV PRN (19:20)
[2020-11-16] MEDS: vancomycin/NS 1 GM ADD-VANTAGE 250 ML IV SCH (19:48)
[2020-11-16] MEDS: normal saline 1000ml 1,000 ML IV SCH (19:49)
[2020-11-16 19:51] LABS: HEMOGLOBIN A1C 5.5 % (4.5-6.2)
[2020-11-16] MEDS: K and/or MAG REPLACEMENT MC SCH (20:00)
[2020-11-16] MEDS ORDERED: cefepime 1GM/NS ADD-VANTAGE 100 ML IV SCH (20:00)
[2020-11-16 22:00] VITALS: BP 164/98
--- NOTE | 2020-11-16 22:28 | NUR ---
ED report received, had the opportunity to ask questions and review patient's chart
[2020-11-16] MEDS ORDERED: ALPRAZolam 0.25mg tablet PO PRN (23:05)
[2020-11-16] MEDS ORDERED: LIDOcaine 2% 10ml TOPICAL JELLY (Urojet) TP ONE (23:05)
[2020-11-17] VITALS: BP 126/75
[2020-11-17] MEDS: cefepime 1GM in D5W 50mL 50 ML IV SCH ×3 (00:23→20:27)
[2020-11-17] MEDS: normal saline 1000ml 1,000 ML IV SCH ×2 (03:30→15:05)
--- NOTE | 2020-11-17 06:41 | NUR ---
Problems reprioritized. Patient report given, questions answered & plan of care reviewed with Ngoc CARO.
--- NOTE | 2020-11-17 06:46 | NUR ---
Patient in room [facility]. I have received report from Steve CARO and had the opportunity to ask questions and assume patient care.
[2020-11-17 07:00] VITALS: BP 109/70
[2020-11-17 07:01] LABS: BASOPHILS % (AUTO) 0.4 % (0-1); EOSINOPHILS # (AUTO) 0.1 X10'3 (0-0.9); EOSINOPHILS % (AUTO) 1.5 % (0-6); HEMATOCRIT 34.6 % (42.0-52.0); HEMOGLOBIN 11.4 g/dl (14.0-17.9); LYMPHOCYTES # (AUTO) 1.1 X10'3 (1.1-4.8); LYMPHOCYTES % (AUTO) 26.6 % (21-51); MEAN CORPUSCULAR HEMOGLOBIN 32.5 PG (27.0-31.0); MEAN CORPUSCULAR VOLUME 98.5 FL (78-98); MEAN PLATELET VOLUME 8.1 FL (7.4-10.4); MONOCYTES # (AUTO) 1.2 X10'3 (0-0.9); MONOCYTES % (AUTO) 27.2 % (2-12); NEUTROPHILS # (AUTO) 1.9 X10'3 (1.8-7.7); NEUTROPHILS % (AUTO) 44.3 % (42-75); PLATELET COUNT 243 X10'3 (140-440); RED BLOOD COUNT 3.52 X10'6 (4.70-6.10); RED CELL DISTRIBUTION WIDTH 14.8 % (11.5-14.5); WHITE BLOOD COUNT 4.3 X10'3 (4.5-11.0)
[2020-11-17 07:56] LABS: PLATELET ESTIMATE NORMAL; TOTAL CELLS COUNTED 100
[2020-11-17 07:57] LABS: GIANT PLATELET FEW; LARGE PLATELETS FEW
[2020-11-17] MEDS: vancomycin/NS 1 GM ADD-VANTAGE 250 ML IV SCH ×2 (08:02→23:57)
[2020-11-17] MEDS: lansoprazole 15mg solutab PO SCH (08:02)
[2020-11-17] MEDS: K and/or MAG REPLACEMENT MC SCH ×2 (08:12→20:00)
[2020-11-17 09:46] LABS: ALBUMIN 2.8 G/DL (3.4-5.0); ANION GAP 5 (8-16); BLOOD UREA NITROGEN 5 MG/DL (7-18); BUN/CREATININE RATIO 6.6 (5.4-32.0); CALCIUM 8.7 MG/DL (8.5-10.1); CHLORIDE 104 MMOL/L (99-107); CHOLESTEROL 117 MG/DL (0-200); CREATININE 0.76 MG/DL (0.60-1.10); GLUCOSE 90 MG/DL (70-104); HDL CHOLESTEROL 39 MG/DL (35-60); LDL CHOLESTEROL 68 MG/DL (50-100); MAGNESIUM 1.8 MG/DL (1.5-2.4); POTASSIUM 4.1 MMOL/L (3.5-5.1); SODIUM 135 MMOL/L (135-145); TOTAL CARBON DIOXIDE 26.3 MMOL/L (24-32); TRIGLYCERIDES 85 MG/DL (20-135); eGFR > 90 ML/MIN
[2020-11-17 11:00] VITALS: BP 151/98
[2020-11-17] MEDS: HYDROcodone/acetaminophen 5mg/325mg tablet PO PRN ×2 (14:14→20:27)
--- NOTE | 2020-11-17 14:16 | NUR ---
Pt c/o "I have pain and feel like I have something biting my ankle." Pt stated pain is "6 or 7". [facility]field admin per MD order, GODRO Grossman notified.
[2020-11-17 20:25] VITALS: BP 102/59
[2020-11-17] MEDS: amitriptyline 50mg tablet PO SCH (20:27)
[2020-11-17] MEDS: enoxaparin 40mg/0.4ml syringe SUBCUT SCH (20:29)
[2020-11-18 00:05] VITALS: BP 148/91
[2020-11-18] MEDS: normal saline 1000ml 1,000 ML IV SCH ×2 (03:00→09:14)
--- NOTE | 2020-11-18 06:50 | NUR ---
Problems reprioritized. Patient report given, questions answered & plan of care reviewed with Lanny CARO.
[2020-11-18] MEDS ORDERED: VANCOMYCIN LEVEL IV ONE (07:30)
[2020-11-18] MEDS: cefepime 1GM in D5W 50mL 50 ML IV SCH ×2 (07:53→19:46)
[2020-11-18] MEDS: lansoprazole 15mg solutab PO SCH (07:53)
[2020-11-18 08:00] VITALS: BP 143/99
[2020-11-18] MEDS: K and/or MAG REPLACEMENT MC SCH ×2 (08:00→20:00)
[2020-11-18 09:10] LABS: BASOPHILS % (AUTO) 0.7 % (0-1); EOSINOPHILS # (AUTO) 0.1 X10'3 (0-0.9); EOSINOPHILS % (AUTO) 3.5 % (0-6); HEMATOCRIT 41.5 % (42.0-52.0); HEMOGLOBIN 13.6 g/dl (14.0-17.9); LYMPHOCYTES % (AUTO) 38.5 % (21-51); MEAN CORPUSCULAR HEMOGLOBIN 32.4 PG (27.0-31.0); MEAN CORPUSCULAR HGB CONC 32.7 g/dL (33.0-36.5); MEAN CORPUSCULAR VOLUME 99.1 FL (78-98); MEAN PLATELET VOLUME 8.3 FL (7.4-10.4); MONOCYTES # (AUTO) 0.3 X10'3 (0-0.9); MONOCYTES % (AUTO) 12.2 % (2-12); NEUTROPHILS # (AUTO) 1.2 X10'3 (1.8-7.7); NEUTROPHILS % (AUTO) 45.1 % (42-75); PLATELET COUNT 266 X10'3 (140-440); RED BLOOD COUNT 4.19 X10'6 (4.70-6.10); RED CELL DISTRIBUTION WIDTH 14.8 % (11.5-14.5); WHITE BLOOD COUNT 2.6 X10'3 (4.5-11.0)
[2020-11-18] MEDS: vancomycin/NS 1 GM ADD-VANTAGE 250 ML IV SCH ×2 (09:14→22:46)
[2020-11-18 09:20] LABS: ALBUMIN 3.3 G/DL (3.4-5.0); ANION GAP 8 (8-16); BLOOD UREA NITROGEN 5 MG/DL (7-18); BUN/CREATININE RATIO 8.2 (5.4-32.0); CALCIUM 9.5 MG/DL (8.5-10.1); CHLORIDE 100 MMOL/L (99-107); CREATININE 0.61 MG/DL (0.60-1.10); GLUCOSE 92 MG/DL (70-104); MAGNESIUM 1.8 MG/DL (1.5-2.4); POTASSIUM 3.8 MMOL/L (3.5-5.1); SODIUM 133 MMOL/L (135-145); TOTAL CARBON DIOXIDE 25.3 MMOL/L (24-32); VANCOMYCIN,TROUGH 14.7 UG/ML (6.0-14.0); eGFR > 90 ML/MIN
[2020-11-18 09:43] LABS: GIANT PLATELET FEW; LARGE PLATELETS FEW; PLATELET ESTIMATE NORMAL; TOTAL CELLS COUNTED 100
[2020-11-18 11:00] VITALS: BP 144/90
[2020-11-18] MEDS: HYDROcodone/acetaminophen 5mg/325mg tablet PO PRN (12:15)
--- NOTE | 2020-11-18 16:32 | NUR ---
PT REFUSED WOUND CARE AND SAID HE WILL BE LEAVING AMA AFTER ARRANGING A RIDE. I LET CHARGE NURSE KNOW.
--- NOTE | 2020-11-18 16:36 | NUR ---
Page Sent PAGER ID: [phone] MESSAGE: [phone] AMBERLY PT REFUSED WOUND CARE AND STATES HE WILL BE LEAVING AMA. NOEMY [phone]
[2020-11-18 17:26] LABS: A/G RATIO 0.7 (0.7-1.7); ALBUMIN 2.8 g/dL (2.9-4.4); GLOBULIN, TOTAL 4.3 g/dL (2.2-3.9); M-SPIKE 0.1 g/dL (Not Observed); PROTEIN, TOTAL, SERUM 7.1 g/dL (6.0-8.5)
--- NOTE | 2020-11-18 18:41 | NUR ---
Problems reprioritized. Patient report given, questions answered & plan of care reviewed with JEREMY CARO.
--- NOTE | 2020-11-18 18:43 | NUR ---
Patient in room [facility]. I have received report from Lanny CARO and had the opportunity to ask questions and assume patient care.
[2020-11-18] MEDS: enoxaparin 40mg/0.4ml syringe SUBCUT SCH (19:47)
[2020-11-18 20:00] VITALS: BP 145/91
[2020-11-18] MEDS: amitriptyline 50mg tablet PO SCH (22:46)
[2020-11-19 00:05] VITALS: BP 140/87
--- NOTE | 2020-11-19 03:57 | NUR ---
I agree with students assessment
[2020-11-19] MEDS: HYDROcodone/acetaminophen 5mg/325mg tablet PO PRN ×3 (04:46→22:59)
--- NOTE | 2020-11-19 06:42 | NUR ---
Problems reprioritized. Patient report given, questions answered & plan of care reviewed with William CARO.
[2020-11-19 06:51] LABS: BASOPHILS % (AUTO) 0.7 % (0-1); EOSINOPHILS # (AUTO) 0.1 X10'3 (0-0.9); HEMATOCRIT 34.6 % (42.0-52.0); HEMOGLOBIN 11.4 g/dl (14.0-17.9); LYMPHOCYTES # (AUTO) 1.1 X10'3 (1.1-4.8); MEAN CORPUSCULAR HEMOGLOBIN 32.2 PG (27.0-31.0); MEAN CORPUSCULAR VOLUME 97.6 FL (78-98); MEAN PLATELET VOLUME 7.7 FL (7.4-10.4); MONOCYTES # (AUTO) 0.7 X10'3 (0-0.9); MONOCYTES % (AUTO) 19.9 % (2-12); NEUTROPHILS # (AUTO) 1.5 X10'3 (1.8-7.7); NEUTROPHILS % (AUTO) 44.4 % (42-75); PLATELET COUNT 321 X10'3 (140-440); RED BLOOD COUNT 3.54 X10'6 (4.70-6.10); RED CELL DISTRIBUTION WIDTH 14.3 % (11.5-14.5); WHITE BLOOD COUNT 3.5 X10'3 (4.5-11.0)
[2020-11-19 07:06] LABS: GLUCOSE 94 MG/DL (70-104); SODIUM 136 MMOL/L (135-145)
[2020-11-19 07:07] LABS: ALBUMIN 2.7 G/DL (3.4-5.0); ANION GAP 8 (8-16); BLOOD UREA NITROGEN 6 MG/DL (7-18); BUN/CREATININE RATIO 9.2 (5.4-32.0); CALCIUM 8.7 MG/DL (8.5-10.1); CHLORIDE 102 MMOL/L (99-107); CREATININE 0.65 MG/DL (0.60-1.10); MAGNESIUM 1.6 MG/DL (1.5-2.4); TOTAL CARBON DIOXIDE 26.5 MMOL/L (24-32); eGFR > 90 ML/MIN
[2020-11-19 08:00] VITALS: BP 148/86
[2020-11-19] MEDS: K and/or MAG REPLACEMENT MC SCH ×2 (08:50→20:00)
[2020-11-19] MEDS: lansoprazole 15mg solutab PO SCH (08:55)
[2020-11-19] MEDS: cefepime 1GM in D5W 50mL 50 ML IV SCH ×2 (08:56→20:59)
[2020-11-19] MEDS: vancomycin/NS 1 GM ADD-VANTAGE 250 ML IV SCH ×2 (08:56→22:43)
[2020-11-19 09:49] LABS: TOTAL CELLS COUNTED 100
[2020-11-19 09:50] LABS: PLATELET ESTIMATE NORMAL
--- NOTE | 2020-11-19 15:00 | NUR ---
dressing on right ankle changed
[2020-11-19 18:00] VITALS: BP 144/83
[2020-11-19] MEDS: enoxaparin 40mg/0.4ml syringe SUBCUT SCH (20:59)
[2020-11-19] MEDS: amitriptyline 50mg tablet PO SCH (20:59)
[2020-11-20] VITALS: BP 142/76
--- NOTE | 2020-11-20 05:43 | NUR ---
Patient in room [facility]. I have received report from Alfredo Tovar RN and had the opportunity to ask questions and assume patient care.
--- NOTE | 2020-11-20 06:23 | NUR ---
Problems reprioritized. Patient report given, questions answered & plan of care reviewed with Bonnie CARO.
[2020-11-20] MEDS ORDERED: VANCOMYCIN LEVEL IV ONE (07:30)
[2020-11-20 08:00] VITALS: BP 125/74
[2020-11-20] MEDS: K and/or MAG REPLACEMENT MC SCH ×2 (08:00→19:39)
[2020-11-20] MEDS ORDERED: traMADol 50MG tablet PO PRN (09:30)
[2020-11-20] MEDS ORDERED: magnesium hydroxide 30ml (MOM) UD suspension PO PRN (09:35)
[2020-11-20 09:58] LABS: BASOPHILS % (AUTO) 0.5 % (0-1); EOSINOPHILS # (AUTO) 0.1 X10'3 (0-0.9); EOSINOPHILS % (AUTO) 1.5 % (0-6); HEMATOCRIT 35.1 % (42.0-52.0); HEMOGLOBIN 11.6 g/dl (14.0-17.9); LYMPHOCYTES % (AUTO) 25.8 % (21-51); MEAN CORPUSCULAR HEMOGLOBIN 32.3 PG (27.0-31.0); MEAN CORPUSCULAR HGB CONC 33.1 g/dL (33.0-36.5); MEAN CORPUSCULAR VOLUME 97.5 FL (78-98); MEAN PLATELET VOLUME 7.1 FL (7.4-10.4); MONOCYTES # (AUTO) 0.5 X10'3 (0-0.9); MONOCYTES % (AUTO) 12.4 % (2-12); NEUTROPHILS # (AUTO) 2.4 X10'3 (1.8-7.7); NEUTROPHILS % (AUTO) 59.8 % (42-75); PLATELET COUNT 350 X10'3 (140-440); RED CELL DISTRIBUTION WIDTH 14.3 % (11.5-14.5)
[2020-11-20] MEDS: lansoprazole 15mg solutab PO SCH (11:56)
[2020-11-20] MEDS: HYDROcodone/acetaminophen 5mg/325mg tablet PO PRN ×2 (11:58→19:45)
[2020-11-20] MEDS: vancomycin/NS 1 GM ADD-VANTAGE 250 ML IV SCH ×2 (12:03→19:45)
[2020-11-20 12:04] LABS: ALBUMIN 2.8 G/DL (3.4-5.0); BLOOD UREA NITROGEN 7 MG/DL (7-18); CHLORIDE 102 MMOL/L (99-107); POTASSIUM 4.1 MMOL/L (3.5-5.1)
[2020-11-20 12:18] LABS: ANION GAP 9 (8-16); BUN/CREATININE RATIO 11.3 (5.4-32.0); CREATININE 0.62 MG/DL (0.60-1.10); GLUCOSE 114 MG/DL (70-104); MAGNESIUM 1.5 MG/DL (1.5-2.4); SODIUM 135 MMOL/L (135-145); TOTAL CARBON DIOXIDE 24.2 MMOL/L (24-32); VANCOMYCIN,TROUGH 12.2 UG/ML (6.0-14.0); eGFR > 90 ML/MIN
[2020-11-20 12:19] VITALS: BP 134/83
--- NOTE | 2020-11-20 15:36 | NUR ---
Initial: Pt admit for infected wound of the RLE with presence of maggots. 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 Pt on a heart healthy CHO controlled diet documented with 50-75% PO intake throughout LOS meeting roughly 61-92% estimated energy needs and 68-100% estimated protein needs. TC to RN however RN unavailable, d/w battery charger conveyor line recommendation for diet liberalization to regular in view of no h/o DM with current A1c 5.5%, BG level range 82-114 mg/dL throughout LOS, and no heart related PMH with lipid panel WNL. Mechanical soft (EC7) was added to diet order d/t poor dentition, pending documentation of PO intake since texture modification. Noted pt on MM5 diet at previous admit in October and with 100% PO intake at most meals. Will monitor need to grind food this admit pending additional trends in PO intake. Pt has been seen by property clerk for food preferences this admit. Recommend Valentín shake BIDLD to assist with wound healing, to be sent pending physician approval in EMR. LB 11/19. Will continue to follow and monitor need for additional nutrition intervention. Recommendations: 1) Continue EC7 diet given poor dentition; Advance to regular diet given A1c 5.5% with no h/o DM and lipid panel WNL with no heart related PMH 2) Monitor need for further texture modification, on MM5 diet at previous admit 3) Valentín shake BIDLD for wound healing, pending physician approval in EMR 4) Bowel care PRN 5) Weekly scaled weights Addendum: 11/20/20 at [address] Amended: Links added.
[2020-11-20] MEDS ORDERED: JUVEN Shake w/Arg/Glut/Ca2+Bmb (Juven 19.3gm) pkt 240ml PO SCH (17:30)
[2020-11-20 18:00] VITALS: BP 141/79
--- NOTE | 2020-11-20 18:01 | NUR ---
Problems reprioritized. Patient report given, questions answered & plan of care reviewed with William CARO.
[2020-11-20] MEDS: enoxaparin 40mg/0.4ml syringe SUBCUT SCH (19:50)
[2020-11-20] MEDS: amitriptyline 50mg tablet PO SCH (21:16)
[2020-11-21] VITALS: BP 133/71
[2020-11-21] MEDS: K and/or MAG REPLACEMENT MC SCH (08:00)
[2020-11-21] MEDS: lansoprazole 15mg solutab PO SCH (08:04)
[2020-11-21] MEDS: vancomycin/NS 1 GM ADD-VANTAGE 250 ML IV SCH (08:04)
[2020-11-21 08:09] LABS: BASOPHILS % (AUTO) 0.7 % (0-1); EOSINOPHILS # (AUTO) 0.1 X10'3 (0-0.9); EOSINOPHILS % (AUTO) 2.6 % (0-6); HEMATOCRIT 31.3 % (42.0-52.0); HEMOGLOBIN 10.7 g/dl (14.0-17.9); LYMPHOCYTES # (AUTO) 1.3 X10'3 (1.1-4.8); LYMPHOCYTES % (AUTO) 28.6 % (21-51); MEAN CORPUSCULAR HEMOGLOBIN 32.6 PG (27.0-31.0); MEAN CORPUSCULAR HGB CONC 34.2 g/dL (33.0-36.5); MEAN CORPUSCULAR VOLUME 95.4 FL (78-98); MEAN PLATELET VOLUME 7.6 FL (7.4-10.4); MONOCYTES # (AUTO) 0.8 X10'3 (0-0.9); MONOCYTES % (AUTO) 17.5 % (2-12); NEUTROPHILS # (AUTO) 2.3 X10'3 (1.8-7.7); NEUTROPHILS % (AUTO) 50.6 % (42-75); PLATELET COUNT 371 X10'3 (140-440); RED BLOOD COUNT 3.28 X10'6 (4.70-6.10); RED CELL DISTRIBUTION WIDTH 14.3 % (11.5-14.5); WHITE BLOOD COUNT 4.5 X10'3 (4.5-11.0)
[2020-11-21 08:36] LABS: ALBUMIN 2.7 G/DL (3.4-5.0); ANION GAP 11 (8-16); BLOOD UREA NITROGEN 10 MG/DL (7-18); BUN/CREATININE RATIO 20.4 (5.4-32.0); CALCIUM 8.6 MG/DL (8.5-10.1); CHLORIDE 103 MMOL/L (99-107); CREATININE 0.49 MG/DL (0.60-1.10); GLUCOSE 86 MG/DL (70-104); MAGNESIUM 1.7 MG/DL (1.5-2.4); SODIUM 138 MMOL/L (135-145); TOTAL CARBON DIOXIDE 24.5 MMOL/L (24-32); eGFR > 90 ML/MIN
[2020-11-21] MEDS: HYDROcodone/acetaminophen 5mg/325mg tablet PO PRN (08:44)
[2020-11-21] MEDS ORDERED: HYDR-3965 PO (11:21)
--- NOTE | 2020-11-21 18:17 | NUR ---
gave Kristin RN DC dispo. pt ready when ride arrives
--- NOTE | 2020-11-21 18:30 | NUR ---
Patient in room [facility]. I have received report from GORDO Veliz and had the opportunity to ask questions and assume patient care.
--- NOTE | 2020-11-21 19:05 | NUR ---
Went to check on patient, had already been taken down by aid for DC. Did not have the opportunity to lay eyes on patient.
[2020-11-22] MEDS ORDERED: VANCOMYCIN LEVEL IV ONE (07:30)
== END 2020-11-21 18:49 | disposition home or self-care (01) | DRG 603 ==
LOC: ER 14:10 → ED HOLD 19:26 → SUR 3N 22:42
PROVIDERS: ADMIT Internal Medicine; ATTEND Internal Medicine
PROC: 3E1038Z Irrigation of Skin and Mucous Membranes using Irrigating Substance, Percutaneous Approach (ICD-10-PCS; principal; 2020-11-16)
DX: L03.115 Cellulitis of right lower limb (principal); L97.319 Non-pressure chronic ulcer of right ankle with unspecified severity; L03.116 Cellulitis of left lower limb; E11.621 Type 2 diabetes mellitus with foot ulcer; F12.90 Cannabis use, unspecified, uncomplicated; F41.9 Anxiety disorder, unspecified; G89.29 Other chronic pain; L97.529 Non-pressure chronic ulcer of other part of left foot with unspecified severity; X58.XXXA Exposure to other specified factors, initial encounter; G47.00 Insomnia, unspecified; K21.9 Gastro-esophageal reflux disease without esophagitis; M21.951 Unspecified acquired deformity of right thigh; E88.09 Other disorders of plasma-protein metabolism, not elsewhere classified; F17.290 Nicotine dependence, other tobacco product, uncomplicated; E11.42 Type 2 diabetes mellitus with diabetic polyneuropathy; Z79.899 Other long term (current) drug therapy; Y93.89 Activity, other specified; Y92.89 Other specified places as the place of occurrence of the external cause; Y99.8 Other external cause status
CPT/HCPCS: 36415; 73610; 80048; 80053; 80061; 80202; 82948; 83036; 83605; 83735; 84145; 84155; 84165; 85007; 85025; 85651; 87040; 87081; 96374; 96375; 97162; 97530; 99285; G0378; J0692; J1650; J2270; J2543; J3370; J7030

== ENCOUNTER 2020-12-29 17:12 | Emergency (ER) | payer MEDICARE, MEDICAID ==
[~2020-12-29] VITALS: Ht 162.6 cm; Wt 75.0 kg
[~2020-12-29 17:12] MED LIST changes: -CEPH500C2 PO; -HYDR-3965 PO; +IBUP-1985 PO; -SILV25CR21 TOP; +SULF1TAB45 PO
[2020-12-29 17:20] VITALS: BP 156/119
[2020-12-29] MEDS ORDERED: ONDA4TAB6 PO (20:41)
[2020-12-29] MEDS ORDERED: HYDR-3972 PO (20:41)
[2020-12-29] MEDS ORDERED: SULF1TAB49 PO (20:42)
[2020-12-29] MEDS ORDERED: CEPH-585 PO (20:42)
--- NOTE | 2020-12-29 20:45 | NUR ---
Pt's R foot redressed with kerlex.
--- NOTE | 2020-12-29 20:50 | NUR ---
Pt given and understands d/c instructions. Escorted to taxi via wheelchair.
== END 2020-12-29 20:50 | disposition home or self-care (01) ==
LOC: ER 17:12
DX: L03.115 Cellulitis of right lower limb (principal); M79.671 Pain in right foot; L98.499 Non-pressure chronic ulcer of skin of other sites with unspecified severity; K21.9 Gastro-esophageal reflux disease without esophagitis; G89.29 Other chronic pain; F12.90 Cannabis use, unspecified, uncomplicated; Z98.890 Other specified postprocedural states; Z72.89 Other problems related to lifestyle; Z79.82 Long term (current) use of aspirin; Z79.899 Other long term (current) drug therapy
CPT/HCPCS: 99283

== ENCOUNTER 2021-03-04 22:13 | Emergency (ER) | payer MEDICARE, MEDICAID ==
[~2021-03-04] VITALS: Ht 182.9 cm; Wt 81.8 kg
[~2021-03-04 22:13] MED LIST changes: +CEPH-585 PO; +ONDA4TAB6 PO
--- NOTE | 2021-03-04 23:30 | NUR ---
PT AGGRESSIVE DURING DISCHARGE. PT STATES 'YOU ARE A PIECE OF SHIT, YOU ARE ALL A PIECE OF SHIT' SECURITY CALLED CHAIRSIDE FOR D/C. PT TAKEN TO CAB IN WHEELCHAIR, TRANSFERRED TO CAB WITH MODERATE ASSISTANCE. PT CONTIUES TO BE AGGRESSIVE, FLIPS MIDDLE FINGER TO AIR DEFENCE OFFICER.
[2021-03-05 00:03] VITALS: BP 109/64
== END 2021-03-05 00:05 | disposition home or self-care (01) ==
LOC: ER 22:14
DX: F10.129 Alcohol abuse with intoxication, unspecified (principal); M79.10 Myalgia, unspecified site; K21.9 Gastro-esophageal reflux disease without esophagitis; G89.29 Other chronic pain; F12.90 Cannabis use, unspecified, uncomplicated; Z86.19 Personal history of other infectious and parasitic diseases; Z98.890 Other specified postprocedural states; Z72.89 Other problems related to lifestyle; Z79.2 Long term (current) use of antibiotics; Z79.899 Other long term (current) drug therapy; Y90.9 Presence of alcohol in blood, level not specified
CPT/HCPCS: 99283

== ENCOUNTER 2021-03-18 18:34 | Emergency (ER) | payer MEDICARE, MEDICAID ==
[~2021-03-18] VITALS: Ht 182.9 cm; Wt 68.2 kg
[2021-03-18] MEDS ORDERED: normal saline 1000ML IV soln IV ONE (18:40)
--- NOTE | 2021-03-18 18:42 | NUR ---
PT STATES HE HAD AN ALCOHOLIC DRINK JUST BEFORE ARRIVAL
[2021-03-18 19:10] LABS: BASOPHILS # (AUTO) 0.1 X10'3 (0-0.2); BASOPHILS % (AUTO) 0.6 % (0-1); EOSINOPHILS % (AUTO) 0 % (0-6); HEMATOCRIT 31.2 % (42.0-52.0); HEMOGLOBIN 10.2 g/dl (14.0-17.9); LYMPHOCYTES # (AUTO) 0.8 X10'3 (1.1-4.8); LYMPHOCYTES % (AUTO) 5.2 % (21-51); MEAN CORPUSCULAR HEMOGLOBIN 31.1 PG (27.0-31.0); MEAN CORPUSCULAR HGB CONC 32.9 g/dL (33.0-36.5); MEAN CORPUSCULAR VOLUME 94.6 FL (78-98); MONOCYTES # (AUTO) 1.7 X10'3 (0-0.9); MONOCYTES % (AUTO) 11.4 % (2-12); NEUTROPHILS # (AUTO) 12.3 X10'3 (1.8-7.7); NEUTROPHILS % (AUTO) 82.8 % (42-75); PLATELET COUNT 127 X10'3 (140-440); RED CELL DISTRIBUTION WIDTH 17.7 % (11.5-14.5); WHITE BLOOD COUNT 14.9 X10'3 (4.5-11.0)
[2021-03-18 19:23] LABS: ALANINE AMINOTRANSFERASE 23 U/L (12-78); ALBUMIN 3.5 G/DL (3.4-5.0); ALBUMIN/GLOBULIN RATIO 0.9 (1.1-1.5); ALKALINE PHOSPHATASE 47 IU/L (46-116); ANION GAP 12 (8-16); ASPARTATE AMINO TRANSFERASE 32 U/L (10-37); BILIRUBIN,TOTAL 0.3 MG/DL (0.1-1.0); BLOOD UREA NITROGEN 20 MG/DL (7-18); BUN/CREATININE RATIO 30.3 (5.4-32.0); CALCIUM 8.4 MG/DL (8.5-10.1); CHLORIDE 103 MMOL/L (99-107); CREATININE 0.66 MG/DL (0.60-1.10); ETHANOL 0.262 GM/DL (0.0-0.010); GLUCOSE 101 MG/DL (70-104); POTASSIUM 3.8 MMOL/L (3.5-5.1); SODIUM 143 MMOL/L (135-145); TOTAL CARBON DIOXIDE 28.1 MMOL/L (24-32); TOTAL PROTEIN 7.3 G/DL (6.4-8.2); eGFR > 90 ML/MIN
[2021-03-18 20:32] VITALS: BP 129/77
== END 2021-03-18 20:35 | disposition home or self-care (01) ==
LOC: ER 18:35
DX: F10.129 Alcohol abuse with intoxication, unspecified (principal); R91.8 Other nonspecific abnormal finding of lung field; R53.1 Weakness; K21.9 Gastro-esophageal reflux disease without esophagitis; G89.29 Other chronic pain; F12.90 Cannabis use, unspecified, uncomplicated; Z72.89 Other problems related to lifestyle; Z98.890 Other specified postprocedural states; Z79.2 Long term (current) use of antibiotics; Z79.899 Other long term (current) drug therapy; Y90.0 Blood alcohol level of less than 20 mg/100 ml
CPT/HCPCS: 36415; 71045; 80053; 80320; 85025; 85610; 86885; 86900; 86901; 93005; 96360; 99285; J7030

== ENCOUNTER 2021-04-05 17:06 | Inpatient (IN) | payer MEDICARE, MEDICAID ==
[~2021-04-05] VITALS: Ht 182.9 cm; Wt 68.2 kg
[2021-04-05 18:00] LABS: BASOPHILS % (AUTO) 0.1 % (0-1); EOSINOPHILS % (AUTO) 0 % (0-6); HEMATOCRIT 30.9 % (42.0-52.0); HEMOGLOBIN 10.2 g/dl (14.0-17.9); LYMPHOCYTES # (AUTO) 0.7 X10'3 (1.1-4.8); LYMPHOCYTES % (AUTO) 2.4 % (21-51); MEAN CORPUSCULAR HEMOGLOBIN 30.4 PG (27.0-31.0); MEAN CORPUSCULAR HGB CONC 33.1 g/dL (33.0-36.5); MEAN PLATELET VOLUME 7.4 FL (7.4-10.4); MONOCYTES # (AUTO) 0.6 X10'3 (0-0.9); MONOCYTES % (AUTO) 2.2 % (2-12); NEUTROPHILS # (AUTO) 26.9 X10'3 (1.8-7.7); NEUTROPHILS % (AUTO) 95.3 % (42-75); PLATELET COUNT 428 X10'3 (140-440); RED BLOOD COUNT 3.36 X10'6 (4.70-6.10)
[2021-04-05 18:02] LABS: WHITE BLOOD COUNT 28.2 X10'3 (4.5-11.0)
[2021-04-05] MEDS ORDERED: normal saline 1000ML IV soln IV ONE ×2 (18:05→18:35)
[2021-04-05] MEDS ORDERED: CefTRIAXone 2gm/D5W 50ml BAG 50 ML IV ONE (18:05)
[2021-04-05 18:19] LABS: CLARITY,URINE CLOUDY (Clear); COLOR,URINE YELLOW (Yellow); GLUCOSE, URINE NEGATIVE (Neg); KETONES,URINE NEGATIVE (Neg); LEUKOCYTE ESTERASE ,URINE NEGATIVE (Neg); NITRITES, URINE NEGATIVE (Neg); OCCULT BLOOD,URINE MODERATE (Neg); PROTEIN,URINE TRACE mg/dl (Neg); UROBILINOGEN,URINE 0.2 E.U/dL (0.2-1.0)
[2021-04-05 18:24] LABS: UA COLLECTION TYPE STRAIGHT CATH
[2021-04-05 18:38] LABS: SQUAMOUS EPITHELIAL CELL,UR FEW /LPF (FEW)
[2021-04-05 18:39] LABS: BACTERIA,URINE 1+ /HPF (Neg); COARSE GRANULAR CAST 0-3 /LPF (NEGATIVE); TRANSITIONAL EPI CELLS,URINE FEW /HPF; WBC,URINE 0-4 /HPF (0-4)
[2021-04-05 18:45] LABS: ALANINE AMINOTRANSFERASE 22 U/L (12-78); ALBUMIN/GLOBULIN RATIO 0.6 (1.1-1.5); ALKALINE PHOSPHATASE 64 IU/L (46-116); ANION GAP 13 (8-16); ASPARTATE AMINO TRANSFERASE 51 U/L (10-37); BILIRUBIN,TOTAL 0.4 MG/DL (0.1-1.0); BLOOD UREA NITROGEN 37 MG/DL (7-18); BUN/CREATININE RATIO 20.9 (5.4-32.0); CHLORIDE 92 MMOL/L (99-107); CREATININE 1.77 MG/DL (0.60-1.10); GLUCOSE 83 MG/DL (70-104); POTASSIUM 5.7 MMOL/L (3.5-5.1); SODIUM 128 MMOL/L (135-145); TOTAL CARBON DIOXIDE 23.5 MMOL/L (24-32); TOTAL PROTEIN 7.8 G/DL (6.4-8.2); eGFR 39 ML/MIN
[2021-04-05 19:21] LABS: ANISOCYTOSIS 1+; PLATELET ESTIMATE NORMAL; TOTAL CELLS COUNTED 100
[2021-04-05 19:22] LABS: POLYCHROMASIA FEW
[2021-04-05] MEDS ORDERED: vancomycin/NS 1 GM ADD-VANTAGE 250 ML IV ONE (20:25)
[2021-04-05] MEDS ORDERED: LORazepam 2 mg/ml vial IV ONE (20:45)
[2021-04-05] MEDS ORDERED: potassium Cl 20 mEq SR tablet PO PRN ×2 (21:00)
[2021-04-05] MEDS ORDERED: mag hydrox/Alum hydrox/simeth 30ml oral suspension PO PRN (21:00)
[2021-04-05] MEDS ORDERED: magnesium hydroxide 30ml (MOM) UD suspension PO PRN (21:00)
[2021-04-05] MEDS ORDERED: magnesium 4gm in 100ml NS 100 ML IV PRN (21:00)
[2021-04-05] MEDS ORDERED: magnesium 2GM in 50ml NS 50 ML IV PRN (21:00)
[2021-04-05] MEDS ORDERED: potassium CL 10mEq/100ml bag 100 ML IV PRN (21:00)
[2021-04-05] MEDS ORDERED: acetaminophen 325mg tablet PO PRN (21:00)
[2021-04-05] MEDS ORDERED: morphine 2 MG/ML inj. syringe IV PRN ×2 (21:00)
[2021-04-05] MEDS ORDERED: ondansetron/PF 4mg/2ml inj IV PRN (21:00)
[2021-04-05] MEDS ORDERED: magnesium Cl slow-release 64mg tablet PO PRN (21:00)
[2021-04-05] MEDS ORDERED: metoprolol tartrate 12.5mg (1/2 tablet) PO ONE (21:05)
[2021-04-05] MEDS ORDERED: LORazepam 2 mg/ml vial IV PRN (21:10)
[2021-04-05] MEDS ORDERED: GABA300C PO (21:48)
[2021-04-05 21:50] LABS: MAGNESIUM 1.4 MG/DL (1.5-2.4); POTASSIUM 4.5 MMOL/L (3.5-5.1)
--- NOTE | 2021-04-05 22:15 | NUR ---
pt appeared lethargic and confused. bgl taken: 74 and juicebox given
[2021-04-05] MEDS: normal saline 1000ml 1,000 ML IV SCH (23:42)
[2021-04-06] VITALS (20 sets, daily range): BP systolic 85–121; BP diastolic 32–76
[2021-04-06] MEDS: piperacillin/tazo 3.375gm/50ml 50 ML IV SCH ×4 (00:02→23:53)
--- NOTE | 2021-04-06 00:03 | NUR ---
Temp mendoza placed and temp is reading 40.1C. Ice packs placed and blankets removed. Tylenol given. Will continue to assess and intervene as appropriate.
[2021-04-06] MEDS ORDERED: normal saline 1000ml 1,000 ML IV STA (00:24)
--- NOTE | 2021-04-06 01:23 | NUR ---
Femoral central line placed with Dr. Pimentel.
[2021-04-06 01:31] LABS: BASOPHILS % (AUTO) 0.2 % (0-1); EOSINOPHILS % (AUTO) 0 % (0-6); HEMATOCRIT 24.5 % (42.0-52.0); LYMPHOCYTES # (AUTO) 0.3 X10'3 (1.1-4.8); LYMPHOCYTES % (AUTO) 1.8 % (21-51); MEAN CORPUSCULAR HEMOGLOBIN 30.4 PG (27.0-31.0); MEAN CORPUSCULAR HGB CONC 32.8 g/dL (33.0-36.5); MEAN CORPUSCULAR VOLUME 92.9 FL (78-98); MEAN PLATELET VOLUME 7.4 FL (7.4-10.4); MONOCYTES # (AUTO) 0.6 X10'3 (0-0.9); MONOCYTES % (AUTO) 3.2 % (2-12); NEUTROPHILS # (AUTO) 17.5 X10'3 (1.8-7.7); NEUTROPHILS % (AUTO) 94.8 % (42-75); PLATELET COUNT 310 X10'3 (140-440); RED BLOOD COUNT 2.64 X10'6 (4.70-6.10); RED CELL DISTRIBUTION WIDTH 17.8 % (11.5-14.5); WHITE BLOOD COUNT 18.4 X10'3 (4.5-11.0)
[2021-04-06 01:49] LABS: ALANINE AMINOTRANSFERASE 13 U/L (12-78); ALBUMIN/GLOBULIN RATIO 0.6 (1.1-1.5); ALKALINE PHOSPHATASE 42 IU/L (46-116); ANION GAP 10 (8-16); ASPARTATE AMINO TRANSFERASE 37 U/L (10-37); BILIRUBIN,TOTAL 0.3 MG/DL (0.1-1.0); BLOOD UREA NITROGEN 26 MG/DL (7-18); BUN/CREATININE RATIO 27.4 (5.4-32.0); CALCIUM 6.8 MG/DL (8.5-10.1); CHLORIDE 103 MMOL/L (99-107); CREATININE 0.95 MG/DL (0.60-1.10); GLUCOSE 91 MG/DL (70-104); MAGNESIUM 1.2 MG/DL (1.5-2.4); POTASSIUM 3.9 MMOL/L (3.5-5.1); SODIUM 133 MMOL/L (135-145); TOTAL PROTEIN 5.2 G/DL (6.4-8.2); eGFR 79 ML/MIN
[2021-04-06] MEDS ORDERED: LIDOcaine 2% 10ml TOPICAL JELLY (Urojet) TP ONE (02:30)
[2021-04-06] MEDS ORDERED: potassium Cl 20 mEq SR tablet PO PRN ×2 (02:30)
[2021-04-06] MEDS ORDERED: morphine 2 MG/ML inj. syringe IV PRN ×2 (02:30)
[2021-04-06] MEDS ORDERED: ondansetron/PF 4mg/2ml inj IV PRN ×2 (02:30)
[2021-04-06] MEDS ORDERED: morphine 4 MG/ML inj SYRINge IV PRN (02:30)
[2021-04-06] MEDS ORDERED: magnesium hydroxide 30ml (MOM) UD suspension PO PRN ×2 (02:30)
[2021-04-06] MEDS ORDERED: acetaminophen 325mg tablet PO PRN ×2 (02:30)
[2021-04-06] MEDS ORDERED: normal saline 1000ml 1,000 ML IV SCH (02:30)
[2021-04-06 05:33] LABS: PLATELET COUNT 371 X10'3 (140-440)
[2021-04-06 05:43] LABS: APTT 39 SECONDS (22-32); D-DIMER 2.64 MG/L FEU (0-0.50)
[2021-04-06] MEDS: normal saline 1000ml 1,000 ML IV SCH ×2 (07:01→16:37)
[2021-04-06] MEDS: heparin, porcine 5000 units/ml vial SQ SCH ×3 (07:26→23:52)
[2021-04-06] MEDS: docusate sod 100mg capsule PO SCH ×2 (07:26→21:14)
[2021-04-06] MEDS: K and/or MAG REPLACEMENT MC SCH (07:27)
[2021-04-06] MEDS ORDERED: docusate sod 100mg capsule PO SCH (08:00)
[2021-04-06] MEDS ORDERED: heparin, porcine 5000 units/ml vial SQ SCH (08:00)
[2021-04-06] MEDS ORDERED: K and/or MAG REPLACEMENT MC SCH ×2 (08:00)
[2021-04-06 08:02] LABS: PHOSPHORUS 2.5 MG/DL (2.3-4.5)
[2021-04-06] MEDS: morphine 4 MG/ML inj SYRINge IV PRN ×3 (10:14→22:09)
[2021-04-06] MEDS ORDERED: normal saline 1000ml 1,000 ML IV ONE ×2 (10:30→13:55)
--- NOTE | 2021-04-06 10:57 | NUR ---
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 Receiving thiamine for etoh w/ folic acid and MVI to be added today per RN. Pt has no teeth per RN; dietary notified to send soft to chew foods/chop all for meals. Consider THREAD TRIMMER BSS if concerns for aspiration. Pt placed on heart healthy diet w/ serum Na 133 this AM up from 128 on admit receiving NS per EMR; RD d/w RN regarding liberalizing to regular diet given no cardiac hx and low serum Na if MD agreeable. Pt had diarrhea this AM w/ c.diff pending per EMR. Will monitor for further nutrition intervention needs this admit. Rec: 1. liberalize to regular diet; current heart healthy w/ low serum Na receiving NS and no cardiac hx per EMR 2. soft to chew foods/chop all given no teeth 3. monitor for ONS needs pending PO trends 4. thiamine, folic acid, and MVI for etoh hx 5. bowel care per rx; consider anti-diarrheal if diarrhea persists per MD discretion 6. scaled wt this admit; subsequent weekly wts Addendum: 04/06/21 at [address] Amended: Links added.
[2021-04-06 11:07] LABS: C DIFF SPECIMEN=DIARRHEA? ACCEPTABLE; C DIFFICILE TOXINS A&B NEGATIVE (Neg)
[2021-04-06] MEDS: multivitamins, therapeutics tablet PO SCH (13:13)
[2021-04-06] MEDS: pantoprazole 40MG/NS 100ML BAG 100 ML IV SCH ×2 (13:13→21:23)
[2021-04-06] MEDS: thiamine 100mg/ml 2ml inj. IV SCH ×2 (13:13→21:29)
[2021-04-06] MEDS: VANCOMYCIN 1GM/200ML IVPB 200 ML IV SCH (13:20)
[2021-04-06] MEDS: acetaminophen 325mg tablet PO PRN (13:20)
[2021-04-06] MEDS: folic acid 1mg/0.2ml inj IV SCH (14:29)
[2021-04-06] MEDS: loperamide 2mg capsule PO PRN ×2 (16:37→23:51)
[2021-04-06] MEDS ORDERED: VANCOMYCIN 750MG IV in NS 250 ML IV SCH (21:00)
[2021-04-07] VITALS (15 sets, daily range): BP systolic 92–137; BP diastolic 37–92
[2021-04-07] MEDS: normal saline 1000ml 1,000 ML IV SCH ×2 (01:50→13:00)
[2021-04-07] MEDS: VANCOMYCIN 1GM/200ML IVPB 200 ML IV SCH ×3 (01:57→20:59)
[2021-04-07 03:55] LABS: BASOPHILS % (AUTO) 0.1 % (0-1); EOSINOPHILS % (AUTO) 0 % (0-6); HEMATOCRIT 27.7 % (42.0-52.0); HEMOGLOBIN 8.9 g/dl (14.0-17.9); LYMPHOCYTES # (AUTO) 0.7 X10'3 (1.1-4.8); LYMPHOCYTES % (AUTO) 3.3 % (21-51); MEAN CORPUSCULAR HEMOGLOBIN 30.2 PG (27.0-31.0); MEAN CORPUSCULAR HGB CONC 32.1 g/dL (33.0-36.5); MEAN CORPUSCULAR VOLUME 94.2 FL (78-98); MEAN PLATELET VOLUME 7.8 FL (7.4-10.4); MONOCYTES # (AUTO) 1.1 X10'3 (0-0.9); MONOCYTES % (AUTO) 5.4 % (2-12); NEUTROPHILS # (AUTO) 18.2 X10'3 (1.8-7.7); NEUTROPHILS % (AUTO) 91.2 % (42-75); PLATELET COUNT 300 X10'3 (140-440); RED BLOOD COUNT 2.94 X10'6 (4.70-6.10); RED CELL DISTRIBUTION WIDTH 17.6 % (11.5-14.5)
[2021-04-07 04:06] LABS: ALANINE AMINOTRANSFERASE 20 U/L (12-78); ALBUMIN 1.9 G/DL (3.4-5.0); ALBUMIN/GLOBULIN RATIO 0.5 (1.1-1.5); ALKALINE PHOSPHATASE 47 IU/L (46-116); ANION GAP 9 (8-16); ASPARTATE AMINO TRANSFERASE 46 U/L (10-37); BILIRUBIN,TOTAL 0.4 MG/DL (0.1-1.0); BLOOD UREA NITROGEN 13 MG/DL (7-18); BUN/CREATININE RATIO 17.8 (5.4-32.0); CALCIUM 7.2 MG/DL (8.5-10.1); CHLORIDE 101 MMOL/L (99-107); CREATININE 0.73 MG/DL (0.60-1.10); GLUCOSE 92 MG/DL (70-104); MAGNESIUM 1.9 MG/DL (1.5-2.4); POTASSIUM 3.8 MMOL/L (3.5-5.1); SODIUM 131 MMOL/L (135-145); TOTAL PROTEIN 5.5 G/DL (6.4-8.2); eGFR > 90 ML/MIN
[2021-04-07 07:06] LABS: PHOSPHORUS 1.6 MG/DL (2.3-4.5)
[2021-04-07] MEDS: pantoprazole 40MG/NS 100ML BAG 100 ML IV SCH (07:42)
[2021-04-07] MEDS: thiamine 100mg/ml 2ml inj. IV SCH ×2 (07:43→20:56)
[2021-04-07] MEDS: folic acid 1mg/0.2ml inj IV SCH (07:43)
[2021-04-07] MEDS: heparin, porcine 5000 units/ml vial SQ SCH ×3 (07:44→21:06)
[2021-04-07] MEDS: acetaminophen 325mg tablet PO PRN (07:45)
[2021-04-07] MEDS: multivitamins, therapeutics tablet PO SCH (07:45)
[2021-04-07] MEDS: piperacillin/tazo 3.375gm/50ml 50 ML IV SCH ×2 (07:46→16:50)
[2021-04-07] MEDS: morphine 4 MG/ML inj SYRINge IV PRN ×3 (07:46→19:10)
[2021-04-07] MEDS: docusate sod 100mg capsule PO SCH ×2 (07:47→20:00)
[2021-04-07] MEDS: K and/or MAG REPLACEMENT MC SCH (07:47)
[2021-04-07] MEDS: Neutra Phos packet PO SCH ×3 (10:05→20:58)
[2021-04-07] MEDS: clindamycin 600mg/D5W 50ml 50 ML IV SCH ×3 (10:05→20:59)
[2021-04-07] MEDS ORDERED: VANCOMYCIN LEVEL IV ONE (12:30)
--- NOTE | 2021-04-07 18:38 | NUR ---
Patient in room [facility] 318. I have received report from Iliana CARO and had the opportunity to ask questions and assume patient care.
[2021-04-07] MEDS ORDERED: iohexol 300mg/ml 100ml inj. ONE (19:14)
[2021-04-07] MEDS: amitriptyline 50mg tablet PO SCH (20:58)
[2021-04-07] MEDS ORDERED: LORazepam 1 MG tablet PO PRN (21:10)
--- NOTE | 2021-04-08 | NUR ---
Patient confused and cursing at staff. Bed alarm placed. Patient refusing for wound care to be done and pulling off tele monitor.
[2021-04-08] MEDS: piperacillin/tazo 3.375gm/50ml 50 ML IV SCH ×4 (00:23→22:47)
[2021-04-08] MEDS: normal saline 1000ml 1,000 ML IV SCH ×3 (00:24→19:35)
[2021-04-08 02:00] VITALS: BP 155/68
[2021-04-08] MEDS: clindamycin 600mg/D5W 50ml 50 ML IV SCH ×4 (02:17→20:13)
[2021-04-08] MEDS: VANCOMYCIN 1GM/200ML IVPB 200 ML IV SCH ×3 (05:02→22:56)
[2021-04-08 06:00] VITALS: BP 151/79
[2021-04-08 06:00] LABS: BASOPHILS % (AUTO) 0.2 % (0-1); EOSINOPHILS # (AUTO) 0.1 X10'3 (0-0.9); EOSINOPHILS % (AUTO) 0.5 % (0-6); HEMATOCRIT 26.7 % (42.0-52.0); HEMOGLOBIN 8.8 g/dl (14.0-17.9); LYMPHOCYTES # (AUTO) 0.6 X10'3 (1.1-4.8); MEAN CORPUSCULAR HEMOGLOBIN 30.6 PG (27.0-31.0); MEAN CORPUSCULAR HGB CONC 32.9 g/dL (33.0-36.5); MEAN CORPUSCULAR VOLUME 93.1 FL (78-98); MEAN PLATELET VOLUME 7.8 FL (7.4-10.4); MONOCYTES # (AUTO) 0.8 X10'3 (0-0.9); MONOCYTES % (AUTO) 6.8 % (2-12); NEUTROPHILS % (AUTO) 87.5 % (42-75); PLATELET COUNT 243 X10'3 (140-440); RED BLOOD COUNT 2.86 X10'6 (4.70-6.10); RED CELL DISTRIBUTION WIDTH 17.4 % (11.5-14.5); WHITE BLOOD COUNT 11.4 X10'3 (4.5-11.0)
[2021-04-08 06:31] LABS: ALANINE AMINOTRANSFERASE 28 U/L (12-78); ALBUMIN 1.7 G/DL (3.4-5.0); ALBUMIN/GLOBULIN RATIO 0.4 (1.1-1.5); ALKALINE PHOSPHATASE 46 IU/L (46-116); ANION GAP 9 (8-16); ASPARTATE AMINO TRANSFERASE 57 U/L (10-37); BILIRUBIN,TOTAL 0.3 MG/DL (0.1-1.0); BLOOD UREA NITROGEN 7 MG/DL (7-18); BUN/CREATININE RATIO 12.5 (5.4-32.0); CALCIUM 7.7 MG/DL (8.5-10.1); CHLORIDE 101 MMOL/L (99-107); CREATININE 0.56 MG/DL (0.60-1.10); GLUCOSE 84 MG/DL (70-104); MAGNESIUM 1.3 MG/DL (1.5-2.4); SODIUM 132 MMOL/L (135-145); TOTAL CARBON DIOXIDE 22.1 MMOL/L (24-32); TOTAL PROTEIN 5.8 G/DL (6.4-8.2); eGFR > 90 ML/MIN
[2021-04-08 06:34] LABS: POTASSIUM 2.9 MMOL/L (3.5-5.1)
--- NOTE | 2021-04-08 06:49 | NUR ---
Problems reprioritized. Patient report given, questions answered & plan of care reviewed with Brianne CARO.
[2021-04-08] MEDS: morphine 4 MG/ML inj SYRINge IV PRN ×4 (08:05→22:46)
[2021-04-08] MEDS: multivitamins, therapeutics tablet PO SCH (08:05)
[2021-04-08] MEDS: potassium Cl 20 mEq SR tablet PO PRN ×3 (08:07→20:12)
[2021-04-08] MEDS: pantoprazole 40mg Tablet.DR PO SCH (08:07)
[2021-04-08] MEDS: docusate sod 100mg capsule PO SCH ×2 (08:08→20:10)
[2021-04-08] MEDS: thiamine 100mg/ml 2ml inj. IV SCH ×2 (08:09→20:10)
[2021-04-08] MEDS: Neutra Phos packet PO SCH ×3 (08:10→20:12)
[2021-04-08] MEDS: heparin, porcine 5000 units/ml vial SQ SCH ×2 (08:10→20:28)
[2021-04-08] MEDS: folic acid 1mg/0.2ml inj IV SCH (08:10)
[2021-04-08] MEDS: K and/or MAG REPLACEMENT MC SCH (08:11)
[2021-04-08 10:00] VITALS: BP 122/68
--- NOTE | 2021-04-08 12:04 | NUR ---
diet changed due to patient not having teeth available. Brianne ACCE
[2021-04-08] MEDS ORDERED: VANCOMYCIN LEVEL IV ONE (12:30)
[2021-04-08 15:00] VITALS: BP 108/71
--- NOTE | 2021-04-08 18:43 | NUR ---
Problems reprioritized. Patient report given, questions answered & plan of care reviewed with Dana CARO.
[2021-04-08 19:22] VITALS: BP 137/80
[2021-04-08] MEDS: amitriptyline 50mg tablet PO SCH (20:13)
[2021-04-08] MEDS: acetaminophen 325mg tablet PO PRN (23:25)
[2021-04-09] VITALS: BP 133/75
[2021-04-09] MEDS: morphine 4 MG/ML inj SYRINge IV PRN ×3 (00:07→20:16)
[2021-04-09] MEDS: acetaminophen 325mg tablet PO PRN ×2 (00:42→00:44)
[2021-04-09 02:00] VITALS: BP 143/89
[2021-04-09] MEDS: clindamycin 600mg/D5W 50ml 50 ML IV SCH ×2 (02:00→07:09)
[2021-04-09] MEDS: piperacillin/tazo 3.375gm/50ml 50 ML IV SCH ×3 (05:29→23:43)
[2021-04-09] MEDS: normal saline 1000ml 1,000 ML IV SCH ×3 (05:33→23:43)
[2021-04-09 05:40] LABS: BASOPHILS % (AUTO) 0.4 % (0-1); EOSINOPHILS # (AUTO) 0.1 X10'3 (0-0.9); EOSINOPHILS % (AUTO) 1.4 % (0-6); HEMATOCRIT 28.5 % (42.0-52.0); HEMOGLOBIN 9.3 g/dl (14.0-17.9); LYMPHOCYTES # (AUTO) 0.8 X10'3 (1.1-4.8); LYMPHOCYTES % (AUTO) 10.6 % (21-51); MEAN CORPUSCULAR HEMOGLOBIN 30.1 PG (27.0-31.0); MEAN CORPUSCULAR HGB CONC 32.4 g/dL (33.0-36.5); MEAN CORPUSCULAR VOLUME 92.9 FL (78-98); MEAN PLATELET VOLUME 7.9 FL (7.4-10.4); MONOCYTES # (AUTO) 0.7 X10'3 (0-0.9); MONOCYTES % (AUTO) 10.2 % (2-12); NEUTROPHILS # (AUTO) 5.6 X10'3 (1.8-7.7); NEUTROPHILS % (AUTO) 77.4 % (42-75); PLATELET COUNT 245 X10'3 (140-440); RED BLOOD COUNT 3.07 X10'6 (4.70-6.10); RED CELL DISTRIBUTION WIDTH 17.2 % (11.5-14.5); WHITE BLOOD COUNT 7.2 X10'3 (4.5-11.0)
[2021-04-09 05:57] LABS: ALANINE AMINOTRANSFERASE 38 U/L (12-78); ALBUMIN 1.8 G/DL (3.4-5.0); ALBUMIN/GLOBULIN RATIO 0.4 (1.1-1.5); ALKALINE PHOSPHATASE 48 IU/L (46-116); ANION GAP 9 (8-16); ASPARTATE AMINO TRANSFERASE 54 U/L (10-37); BILIRUBIN,TOTAL 0.3 MG/DL (0.1-1.0); BLOOD UREA NITROGEN 5 MG/DL (7-18); BUN/CREATININE RATIO 9.3 (5.4-32.0); CALCIUM 7.9 MG/DL (8.5-10.1); CHLORIDE 103 MMOL/L (99-107); CREATININE 0.54 MG/DL (0.60-1.10); GLUCOSE 109 MG/DL (70-104); MAGNESIUM 1.2 MG/DL (1.5-2.4); POTASSIUM 3.3 MMOL/L (3.5-5.1); SODIUM 135 MMOL/L (135-145); eGFR > 90 ML/MIN
[2021-04-09 06:00] VITALS: BP 147/83
[2021-04-09] MEDS: thiamine 100mg/ml 2ml inj. IV SCH ×2 (07:09→20:11)
[2021-04-09] MEDS: VANCOMYCIN 1GM/200ML IVPB 200 ML IV SCH ×3 (07:09→20:10)
[2021-04-09] MEDS: multivitamins, therapeutics tablet PO SCH (07:10)
[2021-04-09] MEDS: pantoprazole 40mg Tablet.DR PO SCH (07:10)
[2021-04-09] MEDS: Neutra Phos packet PO SCH ×3 (07:10→20:14)
[2021-04-09] MEDS: docusate sod 100mg capsule PO SCH ×2 (07:10→20:00)
[2021-04-09] MEDS: heparin, porcine 5000 units/ml vial SQ SCH ×2 (07:10→20:13)
[2021-04-09] MEDS: folic acid 1mg/0.2ml inj IV SCH (08:00)
--- NOTE | 2021-04-09 09:45 | NUR ---
Reassessment: Pt advanced to regular diet 04/06; placed on an MM5 diet 04/08 in view of pt is edentulous. Noted kitchen was not sending MM5 diet as ordered in EMR, kitchen staff notified. PO intake ~72% avg of regular meals, partially meeting estimated nutritional needs. Pt could benefit from cottage cheese BIDBL and yogurt WS to help meet estimated kcal/protein needs, d/w dietary. Receiving thiamine, folic acid, and MVI given hx of EtOH. LBM 04/08, receiving routine bowel care. Noted diarrhea, pt received imodium 04/06. Will continue monitor. Recommendations: 1. Continue MM5/Thins diet as tolerated given edentulous 2. Cottage cheese BIDBL and yogurt WS, encourage PO intake 3. Monitor need for ONS 4. Thiamine, Folate, and MVI for etoh hx 5. Bowel care per Rx 6. Scaled wt this admit; subsequent weekly wts Addendum: 04/09/21 at [address] Amended: Links added. Addendum: 04/09/21 at [address] I have reviewed and agree with note by Construction SpecialistRoel Glass RD
[2021-04-09] MEDS ORDERED: iohexol 350MG/ML 100ml bottle IV ONE (09:52)
--- NOTE | 2021-04-09 14:02 | NUR ---
PRESSURE ULCER EDUCATION: DEFINITION: A pressure ulcer is an area of skin that breaks down when you stay in one position too long. The constant pressure against the skin reduces the blood flow to that area and the affected tissue dies. CAUSES: "Being bedridden or in a wheelchair "Fragile skin "Having a chronic condition, such as diabetes or vascular disease "Inability to move certain parts of your body without assistance "Older age "Incontinence of urine or stool SYMPTOMS: "A reddened area that DOES NOT turn white when pressed on - this can be the beginning of a pressure ulcer "A blister, deep sore or a crater - these can be advanced pressure ulcers FIRST AID: "Relieve the pressure on this area "Keep the area clean and dry "Call your primary doctor if you see any of the above symptoms "DO NOT massage the area "DO NOT use a donut shaped or ring shaped pillow- these actually interfere with the blood flow and cause complications PREVENTION: "Check for pressure ulcers everyday "Change position at least every two hours to relieve pressure "Use items that help relieve pressure- pillows, sheepskin, foam padding, and powders. "Keep skin clean and dry "Eat healthy well balanced meals "Exercise daily IF YOU SEE ANY OF THESE SYMPTOMS WHILE IN THE HOSPITAL - TELL YOUR NURSE IMMEDIATELY. IF YOU SEE ANY OF THESE SYMPTOMS WHILE AT HOME OR HAVE ANY QUESTIONS OR CONCERNS ABOUT PRESSURE ULCERS - CALL YOUR PRIMARY DOCTOR IMMEDIATELY. Addendum: 04/09/21 at 1403 by Arabella Gregg RN Amended: Links added.
[2021-04-09 15:00] VITALS: BP 148/80
[2021-04-09] MEDS: clindamycin 150mg capsule PO SCH ×2 (16:01→20:24)
[2021-04-09 18:00] VITALS: BP_SYST 142; BP_SYST 150; BP_DIAS 87; BP_DIAS 90
[2021-04-09] MEDS ORDERED: potassium Cl 20 mEq SR tablet PO PRN ×2 (18:40)
[2021-04-09] MEDS ORDERED: potassium CL 10mEq/100ml bag 100 ML IV PRN (18:40)
[2021-04-09] MEDS ORDERED: magnesium 2GM in 50ml NS 50 ML IV PRN (18:40)
[2021-04-09] MEDS ORDERED: magnesium 4gm in 100ml NS 100 ML IV PRN (18:40)
[2021-04-09] MEDS: K and/or MAG REPLACEMENT MC SCH (19:33)
[2021-04-09] MEDS: amitriptyline 50mg tablet PO SCH (20:13)
[2021-04-09] MEDS: gabapentin 300mg capsule PO PRN (20:17)
[2021-04-09] MEDS: magnesium Cl slow-release 64mg tablet PO PRN ×2 (20:17→23:42)
[2021-04-09] MEDS: potassium Cl 20 mEq SR tablet PO PRN ×2 (20:17→23:42)
[2021-04-09] MEDS: loperamide 2mg capsule PO PRN (20:17)
--- NOTE | 2021-04-09 20:48 | NUR ---
Page Sent PAGER ID: [phone] MESSAGE: critical mg+ for 3018B - Replacement protocol ordered and administered
[2021-04-09] MEDS ORDERED: LORazepam 1 MG tablet PO PRN (21:10)
[2021-04-09 22:00] VITALS: BP 150/90
[2021-04-10] MEDS: clindamycin 150mg capsule PO SCH ×3 (01:55→14:12)
[2021-04-10 02:00] VITALS: BP 142/85
[2021-04-10] MEDS: VANCOMYCIN 1GM/200ML IVPB 200 ML IV SCH ×2 (05:13→14:17)
[2021-04-10] MEDS: potassium Cl 20 mEq SR tablet PO PRN (05:13)
[2021-04-10 07:11] LABS: BASOPHILS # (AUTO) 0.1 X10'3 (0-0.2); BASOPHILS % (AUTO) 0.6 % (0-1); EOSINOPHILS # (AUTO) 0.1 X10'3 (0-0.9); EOSINOPHILS % (AUTO) 1.6 % (0-6); HEMOGLOBIN 9.2 g/dl (14.0-17.9); LYMPHOCYTES # (AUTO) 0.8 X10'3 (1.1-4.8); LYMPHOCYTES % (AUTO) 10.5 % (21-51); MEAN CORPUSCULAR HEMOGLOBIN 30.3 PG (27.0-31.0); MEAN CORPUSCULAR VOLUME 91.8 FL (78-98); MEAN PLATELET VOLUME 7.8 FL (7.4-10.4); MONOCYTES # (AUTO) 1.1 X10'3 (0-0.9); NEUTROPHILS # (AUTO) 5.9 X10'3 (1.8-7.7); NEUTROPHILS % (AUTO) 73.3 % (42-75); PLATELET COUNT 276 X10'3 (140-440); RED BLOOD COUNT 3.05 X10'6 (4.70-6.10); RED CELL DISTRIBUTION WIDTH 17.2 % (11.5-14.5)
[2021-04-10 07:30] LABS: ALANINE AMINOTRANSFERASE 31 U/L (12-78); ALBUMIN 1.9 G/DL (3.4-5.0); ALBUMIN/GLOBULIN RATIO 0.4 (1.1-1.5); ALKALINE PHOSPHATASE 46 IU/L (46-116); ANION GAP 7 (8-16); ASPARTATE AMINO TRANSFERASE 29 U/L (10-37); BILIRUBIN,TOTAL 0.2 MG/DL (0.1-1.0); BLOOD UREA NITROGEN 4 MG/DL (7-18); CALCIUM 7.8 MG/DL (8.5-10.1); CHLORIDE 105 MMOL/L (99-107); CREATININE 0.57 MG/DL (0.60-1.10); GLUCOSE 93 MG/DL (70-104); POTASSIUM 4.1 MMOL/L (3.5-5.1); SODIUM 137 MMOL/L (135-145); TOTAL CARBON DIOXIDE 24.9 MMOL/L (24-32); TOTAL PROTEIN 6.4 G/DL (6.4-8.2); eGFR > 90 ML/MIN
[2021-04-10] MEDS ORDERED: folic acid 1mg tablet PO SCH (08:00)
[2021-04-10] MEDS ORDERED: thiamine 100mg tablet PO SCH (08:00)
[2021-04-10] MEDS: K and/or MAG REPLACEMENT MC SCH (08:00)
[2021-04-10] MEDS: docusate sod 100mg capsule PO SCH (08:00)
[2021-04-10] MEDS: Neutra Phos packet PO SCH ×2 (08:50→14:08)
[2021-04-10] MEDS: multivitamins, therapeutics tablet PO SCH (08:51)
[2021-04-10] MEDS: gabapentin 300mg capsule PO PRN (08:52)
[2021-04-10] MEDS: loperamide 2mg capsule PO PRN (08:53)
[2021-04-10] MEDS: pantoprazole 40mg Tablet.DR PO SCH (08:53)
[2021-04-10] MEDS: heparin, porcine 5000 units/ml vial SQ SCH (08:55)
[2021-04-10] MEDS: piperacillin/tazo 3.375gm/50ml 50 ML IV SCH ×2 (08:56→16:00)
[2021-04-10 11:00] VITALS: BP 132/80
[2021-04-10 11:32] VITALS: BP 142/85
[2021-04-10 11:32] LABS: MAGNESIUM 1.3 MG/DL (1.5-2.4)
[2021-04-10] MEDS ORDERED: THIA50TA10 PO (11:34)
[2021-04-10] MEDS ORDERED: FOLI0.4T6 PO (11:34)
[2021-04-10] MEDS ORDERED: LEVO750T46 PO (11:34)
[2021-04-10] MEDS ORDERED: LACT1CAP26 PO (11:34)
[2021-04-10] MEDS ORDERED: MULT-25 PO (11:34)
[2021-04-10] MEDS: normal saline 1000ml 1,000 ML IV SCH (11:36)
[2021-04-10] MEDS ORDERED: MAGN400C PO (11:46)
--- NOTE | 2021-04-10 11:53 | NUR ---
Patient would like his Visa Credit card taken to the lobby and given to his friend Charlie Ferris to go and buy dog food. Tamar from admitting and Yevgeniy the flight security specialist came to the floor and took patients Visa card to the lobby to patients friend who will keep the card until patient is discharged.
[2021-04-10 15:00] VITALS: BP 141/89
[2021-04-10] MEDS: acetaminophen 325mg tablet PO PRN (15:54)
--- NOTE | 2021-04-10 16:00 | NUR ---
Patient's discharge instructions reviewed with patient by student accounts manager Cailin, All questions answered. Patients PIV dc'd for discharge, Patients Tele monitor # [id number] taken off and returned to the Tele office. Pictures taken of patients wounds on discharge. Patient states he has all his belongings and patient was taken to the lobby where he had [employer] waiting to transport patient home via his wheelchair.
== END 2021-04-10 16:07 | disposition home health service (06) | DRG 871 ==
LOC: ER 17:06 → ED HOLD 21:03 → ICU 2S 04-06 03:26 → MED 3N 04-07 12:15
PROVIDERS: ADMIT Internal Medicine; ATTEND Internal Medicine
PROC: 06HY33Z Insertion of Infusion Device into Lower Vein, Percutaneous Approach (ICD-10-PCS; principal; 2021-04-06)
PROC: B54BZZA Ultrasonography of Right Lower Extremity Veins, Guidance (ICD-10-PCS; 2021-04-06)
PROC: BQ2R1ZZ Computerized Tomography (CT Scan) of Right Lower Extremity using Low Osmolar Contrast (ICD-10-PCS; 2021-04-07)
PROC: BQ2S1ZZ Computerized Tomography (CT Scan) of Left Lower Extremity using Low Osmolar Contrast (ICD-10-PCS; 2021-04-07)
PROC: B32T1ZZ Computerized Tomography (CT Scan) of Left Pulmonary Artery using Low Osmolar Contrast (ICD-10-PCS; 2021-04-09)
PROC: B3201ZZ Computerized Tomography (CT Scan) of Thoracic Aorta using Low Osmolar Contrast (ICD-10-PCS; 2021-04-09)
PROC: B32S1ZZ Computerized Tomography (CT Scan) of Right Pulmonary Artery using Low Osmolar Contrast (ICD-10-PCS; 2021-04-09)
DX: A41.9 Sepsis, unspecified organism (principal); R65.21 Severe sepsis with septic shock; J18.9 Pneumonia, unspecified organism; L03.116 Cellulitis of left lower limb; E87.1 Hypo-osmolality and hyponatremia; L03.115 Cellulitis of right lower limb; L97.929 Non-pressure chronic ulcer of unspecified part of left lower leg with unspecified severity; L97.919 Non-pressure chronic ulcer of unspecified part of right lower leg with unspecified severity; N17.9 Acute kidney failure, unspecified; F10.929 Alcohol use, unspecified with intoxication, unspecified; E87.5 Hyperkalemia; Y90.9 Presence of alcohol in blood, level not specified; Z20.822 Contact with and (suspected) exposure to COVID-19; E83.42 Hypomagnesemia; E87.6 Hypokalemia; I10 Essential (primary) hypertension; K21.9 Gastro-esophageal reflux disease without esophagitis; F17.200 Nicotine dependence, unspecified, uncomplicated; I73.9 Peripheral vascular disease, unspecified; G62.9 Polyneuropathy, unspecified; Z99.3 Dependence on wheelchair; Z79.899 Other long term (current) drug therapy
CPT/HCPCS: 36415; 71275; 73630; 73701; 80053; 80202; 81001; 82330; 82948; 83605; 83735; 84100; 84132; 84145; 84443; 85007; 85025; 85379; 85384; 85610; 85730; 87040; 87081; 87324; 87449; 87635; 93005; 93970; 96361; 96365; 96375; 97161; 97530; 99285; C9113; G0378; J0696; J1644; J2060; J2270; J2543; J3370; J3411; J3475; J3490; J7030; Q9967

== ENCOUNTER 2021-05-07 21:25 | Emergency (ER) | payer MEDICARE, MEDICAID ==
[~2021-05-07] VITALS: Ht 167.6 cm; Wt 75.0 kg
[~2021-05-07 21:25] MED LIST changes: -CEPH-585 PO; +FOLI0.4T6 PO; +GABA300C PO; -IBUP-1985 PO; +LACT1CAP26 PO; +LEVO750T46 PO; +MAGN400C PO; +MULT-25 PO; -ONDA4TAB6 PO; -SULF1TAB45 PO; +THIA50TA10 PO
[2021-05-07] MEDS ORDERED: HYDROcodone/acetaminophen 5mg/325mg tablet PO ONE (22:45)
[2021-05-08 00:27] LABS: BASOPHILS % (AUTO) 0.4 % (0-1); EOSINOPHILS # (AUTO) 0.1 X10'3 (0-0.9); EOSINOPHILS % (AUTO) 0.9 % (0-6); HEMATOCRIT 32.3 % (42.0-52.0); HEMOGLOBIN 10.8 g/dl (14.0-17.9); LYMPHOCYTES # (AUTO) 1.4 X10'3 (1.1-4.8); LYMPHOCYTES % (AUTO) 20.5 % (21-51); MEAN CORPUSCULAR HEMOGLOBIN 30.3 PG (27.0-31.0); MEAN CORPUSCULAR HGB CONC 33.4 g/dL (33.0-36.5); MEAN CORPUSCULAR VOLUME 90.6 FL (78-98); MEAN PLATELET VOLUME 7.6 FL (7.4-10.4); MONOCYTES # (AUTO) 0.4 X10'3 (0-0.9); MONOCYTES % (AUTO) 6.6 % (2-12); NEUTROPHILS # (AUTO) 4.8 X10'3 (1.8-7.7); NEUTROPHILS % (AUTO) 71.6 % (42-75); PLATELET COUNT 342 X10'3 (140-440); RED BLOOD COUNT 3.57 X10'6 (4.70-6.10); WHITE BLOOD COUNT 6.7 X10'3 (4.5-11.0)
[2021-05-08 00:43] LABS: ALBUMIN 3.4 G/DL (3.4-5.0); ALBUMIN/GLOBULIN RATIO 0.6 (1.1-1.5); ALKALINE PHOSPHATASE 60 IU/L (46-116); ASPARTATE AMINO TRANSFERASE 20 U/L (10-37); BILIRUBIN,TOTAL 0.2 MG/DL (0.1-1.0); BLOOD UREA NITROGEN 5 MG/DL (7-18); BUN/CREATININE RATIO 8.5 (5.4-32.0); CHLORIDE 100 MMOL/L (99-107); CREATININE 0.59 MG/DL (0.60-1.10); GLUCOSE 81 MG/DL (70-104); POTASSIUM 4.2 MMOL/L (3.5-5.1); SODIUM 135 MMOL/L (135-145); TOTAL PROTEIN 8.7 G/DL (6.4-8.2); eGFR > 90 ML/MIN
[2021-05-08 00:50] LABS: URINE AMPHETAMINE SCREEN NEGATIVE (Neg); URINE BARBITUATE SCREEN NEGATIVE (Neg); URINE BENZODIAZEPINES SCREEN NEGATIVE (Neg); URINE CANNABINOID SCREEN POSITIVE (Neg); URINE COCAINE SCREEN NEGATIVE (Neg); URINE METHADONE SCREEN NEGATIVE (Neg); URINE OPIATE SCREEN POSITIVE (Neg); URINE PHENCYCLIDINE SCREEN NEGATIVE (Neg)
[2021-05-08 00:52] LABS: ALANINE AMINOTRANSFERASE 12 U/L (12-78); ANION GAP 9 (8-16); TOTAL CARBON DIOXIDE 26.2 MMOL/L (24-32)
[2021-05-08 01:01] LABS: ETHANOL 0.199 GM/DL (0.0-0.010)
[2021-05-08] MEDS ORDERED: GABA-534 PO (01:17)
[2021-05-08] MEDS ORDERED: PANT-47 PO (01:18)
[2021-05-08 01:21] VITALS: BP 113/66
== END 2021-05-08 01:23 | disposition home or self-care (01) ==
LOC: ER 21:27
DX: S80.812A Abrasion, left lower leg, initial encounter (principal); G62.9 Polyneuropathy, unspecified; K21.9 Gastro-esophageal reflux disease without esophagitis; G89.29 Other chronic pain; Z86.19 Personal history of other infectious and parasitic diseases; F17.200 Nicotine dependence, unspecified, uncomplicated; F12.90 Cannabis use, unspecified, uncomplicated; Z72.89 Other problems related to lifestyle; Z79.899 Other long term (current) drug therapy; Z79.2 Long term (current) use of antibiotics; W05.0XXA Fall from non-moving wheelchair, initial encounter; Z91.81 History of falling; Y93.89 Activity, other specified; Y92.89 Other specified places as the place of occurrence of the external cause; Y99.8 Other external cause status
CPT/HCPCS: 36415; 71045; 73600; 73620; 80053; 80305; 80320; 85025; 93005; 99285

== ENCOUNTER 2021-08-02 15:53 | Emergency (ER) | payer MEDICARE, MEDICAID ==
[~2021-08-02] VITALS: Ht 182.9 cm; Wt 68.2 kg
[~2021-08-02 15:53] MED LIST changes: +FOLI0.4T14 PO; -FOLI0.4T6 PO; +GABA-534 PO; -LACT1CAP26 PO; -LEVO750T46 PO; +LINE600T14 PO; -MAGN400C PO; +MAGN400T39 PO; +PANT-47 PO; -PANT20TA18 PO; +THIA100T70 PO; -THIA50TA10 PO
[2021-08-02 15:55] VITALS: BP 122/86
[2021-08-02] MEDS ORDERED: POLY17PO10 PO (16:58)
[2021-08-02] MEDS ORDERED: magnesium citrate 296ml oral solution PO ONE (17:00)
== END 2021-08-02 17:39 | disposition home or self-care (01) ==
LOC: ER 15:54
DX: K59.00 Constipation, unspecified (principal); G89.29 Other chronic pain; K21.9 Gastro-esophageal reflux disease without esophagitis; F12.10 Cannabis abuse, uncomplicated
CPT/HCPCS: 99284

== ENCOUNTER 2021-08-24 20:45 | Emergency (ER) | payer MEDICARE, MEDICAID ==
[~2021-08-24] VITALS: Ht 182.9 cm; Wt 75.0 kg
[~2021-08-24 20:45] MED LIST changes: +POLY17PO10 PO
--- NOTE | 2021-08-24 21:28 | NUR ---
Pt is wanting to leave but is here on a 5150 and cannot leave. Pt got up and sat in chair stating he was leaving. Security was called and pt was calmed down and given sandwich.
[2021-08-24 22:22] LABS: BASOPHILS % (AUTO) 0.8 % (0-1); EOSINOPHILS # (AUTO) 0.1 X10'3 (0-0.9); EOSINOPHILS % (AUTO) 1.4 % (0-6); HEMATOCRIT 36.5 % (42.0-52.0); HEMOGLOBIN 11.9 g/dl (14.0-17.9); LYMPHOCYTES # (AUTO) 1.7 X10'3 (1.1-4.8); LYMPHOCYTES % (AUTO) 34.1 % (21-51); MEAN CORPUSCULAR HEMOGLOBIN 29.5 PG (27.0-31.0); MEAN CORPUSCULAR HGB CONC 32.7 g/dL (33.0-36.5); MEAN CORPUSCULAR VOLUME 90.4 FL (78-98); MEAN PLATELET VOLUME 7.3 FL (7.4-10.4); MONOCYTES # (AUTO) 0.5 X10'3 (0-0.9); MONOCYTES % (AUTO) 9.2 % (2-12); NEUTROPHILS # (AUTO) 2.8 X10'3 (1.8-7.7); NEUTROPHILS % (AUTO) 54.5 % (42-75); PLATELET COUNT 252 X10'3 (140-440); RED BLOOD COUNT 4.03 X10'6 (4.70-6.10); RED CELL DISTRIBUTION WIDTH 22.9 % (11.5-14.5); WHITE BLOOD COUNT 5.1 X10'3 (4.5-11.0)
[2021-08-24 22:37] LABS: ALANINE AMINOTRANSFERASE 31 U/L (12-78); ALBUMIN 4.1 G/DL (3.4-5.0); ALBUMIN/GLOBULIN RATIO 0.8 (1.1-1.5); ALKALINE PHOSPHATASE 63 IU/L (46-116); ANION GAP 13 (8-16); ASPARTATE AMINO TRANSFERASE 39 U/L (10-37); BILIRUBIN,TOTAL 0.4 MG/DL (0.1-1.0); BLOOD UREA NITROGEN 6 MG/DL (7-18); BUN/CREATININE RATIO 8.5 (5.4-32.0); CALCIUM 8.8 MG/DL (8.5-10.1); CHLORIDE 99 MMOL/L (99-107); CREATININE 0.71 MG/DL (0.60-1.10); GLUCOSE 104 MG/DL (70-104); POTASSIUM 3.8 MMOL/L (3.5-5.1); SODIUM 140 MMOL/L (135-145); TOTAL CARBON DIOXIDE 28.5 MMOL/L (24-32); TOTAL PROTEIN 9.2 G/DL (6.4-8.2); eGFR > 90 ML/MIN
[2021-08-24 22:39] LABS: PLATELET ESTIMATE NORMAL
[2021-08-24 22:40] LABS: ANISOCYTOSIS 3+; HYPOCHROMASIA 2+; TARGET CELLS 1+
[2021-08-24 22:46] LABS: CREATINE KINASE 128 U/L (39-308); ETHANOL 0.301 GM/DL (0.0-0.010)
--- NOTE | 2021-08-25 02:55 | NUR ---
Pt is still aware of the need for urine.
[2021-08-25 03:57] LABS: CLARITY,URINE CLEAR (Clear); COLOR,URINE YELLOW (Yellow); GLUCOSE, URINE NEGATIVE (Neg); KETONES,URINE NEGATIVE (Neg); LEUKOCYTE ESTERASE ,URINE NEGATIVE (Neg); NITRITES, URINE NEGATIVE (Neg); OCCULT BLOOD,URINE NEGATIVE (Neg); PROTEIN,URINE NEGATIVE (Neg); UROBILINOGEN,URINE 0.2 E.U/dL (0.2-1.0)
[2021-08-25 04:00] LABS: UA COLLECTION TYPE URINAL
--- NOTE | 2021-08-25 04:00 | NUR ---
Pt not sure about home meds and doses
[2021-08-25 04:08] LABS: URINE AMPHETAMINE SCREEN NEGATIVE (Neg); URINE BARBITUATE SCREEN NEGATIVE (Neg); URINE BENZODIAZEPINES SCREEN NEGATIVE (Neg); URINE CANNABINOID SCREEN POSITIVE (Neg); URINE COCAINE SCREEN NEGATIVE (Neg); URINE METHADONE SCREEN NEGATIVE (Neg); URINE OPIATE SCREEN NEGATIVE (Neg); URINE PHENCYCLIDINE SCREEN NEGATIVE (Neg)
--- NOTE | 2021-08-25 04:14 | NUR ---
The patient moved to bed 22 from the main ER. He is in good spirits and was cooperative with the move.
--- NOTE | 2021-08-25 04:26 | NUR ---
PACKET SENT TO [facility]
[2021-08-25] MEDS ORDERED: POLY119P2 PO (04:37)
[2021-08-25] MEDS ORDERED: ASPI-1265 PO (04:37)
[2021-08-25 04:38] VITALS: BP 143/79
[2021-08-25] MEDS ORDERED: PANT20TA2 PO (04:38)
--- NOTE | 2021-08-25 05:07 | NUR ---
The patient appears to be sleeping
[2021-08-25] MEDS ORDERED: PANT40TA54 PO (05:34)
[2021-08-25] MEDS ORDERED: pantoprazole 40mg Tablet.DR PO SCH (05:35)
--- NOTE | 2021-08-25 06:22 | NUR ---
Recvd report from GORDO Mckinney - Patient asleep in bed. No signs of distress. No needs at this time.
[2021-08-25] MEDS: polyethylene glycol 3350 17gm powd pack PO SCH ×2 (07:28→07:30)
--- NOTE | 2021-08-25 07:36 | NUR ---
Patient refused miralax, stated his "stool is already soft". Told patient we still needed urine from him and he stated that he went around 0400 today already. Urinal at bedside clean and empty.
[2021-08-25] MEDS ORDERED: folic acid 0.4mg tablet PO SCH (08:00)
[2021-08-25] MEDS ORDERED: aspirin 81mg tab.chew PO SCH (08:00)
--- NOTE | 2021-08-25 08:20 | NUR ---
Patient sitting up in bed eating breakfast.
--- NOTE | 2021-08-25 08:39 | NUR ---
Patient ate 100% of breakfast.
--- NOTE | 2021-08-25 09:19 | NUR ---
[facility] at the bedside completing evaluation.
--- NOTE | 2021-08-25 10:06 | NUR ---
Patient to bedside commode with assitance of tech.
--- NOTE | 2021-08-25 10:27 | NUR ---
Patient stated he needed to use the restroom. Offered patient bedside commode, he refused. Patient was extremely frustrated that our hospital wheelchair and/or bathroom was ideal for him. Two person assist to get him to the bathroom and on the toilet as he wished.
--- NOTE | 2021-08-25 11:18 | NUR ---
Patient was evaluated by [facility] and does not meet criteria to continue hold. Patient will be transported home. [facility] was contacted and will send their next available BLS unit to ED to take the patient home. ETA unknown.
[2021-08-25] MEDS ORDERED: amitriptyline 50mg tablet PO SCH (21:00)
== END 2021-08-25 12:42 | disposition home or self-care (01) ==
LOC: ER 20:46
DX: G89.29 Other chronic pain (principal); Z20.822 Contact with and (suspected) exposure to COVID-19; M79.2 Neuralgia and neuritis, unspecified; Z73.6 Limitation of activities due to disability; K21.9 Gastro-esophageal reflux disease without esophagitis; M54.50 Low back pain, unspecified; F12.90 Cannabis use, unspecified, uncomplicated; S09.90XA Unspecified injury of head, initial encounter; S16.1XXA Strain of muscle, fascia and tendon at neck level, initial encounter
CPT/HCPCS: 70450; 71045; 72125; 73630; 80053; 80305; 80320; 81003; 82550; 84443; 85008; 85025; 87635; 99285; C1758; C9803

== ENCOUNTER 2021-08-29 22:53 | Emergency (ER) | payer MEDICARE, MEDICAID ==
[~2021-08-29] VITALS: Ht 180.3 cm; Wt 63.6 kg
[~2021-08-29 22:53] MED LIST changes: +ASPI-1265 PO; -GABA-534 PO; -GABA300C PO; -LINE600T14 PO; -MAGN400T39 PO; -MULT-25 PO; -PANT-47 PO; +PANT40TA54 PO; +POLY119P2 PO; -POLY17PO10 PO; -THIA100T70 PO
--- NOTE | 2021-08-30 05:19 | NUR ---
PT HAS BEEN UP FOR DISCHARGE, AWAITING TRANSPORTATION HOME
--- NOTE | 2021-08-30 06:40 | NUR ---
[facility] CALLED BACK, AWAITING ETA ON TRANSPORT
--- NOTE | 2021-08-30 09:00 | NUR ---
Patient woke up, when Gudelia CESPEDES asked patient about transportation and where he would like to go after discharge. Patient refused to give her information and stated that he is going to "shit the bed right now". I stepped in and discussed with patient that this was inappropriate and that we could get him to a toilet. Patient continued to stated that [place] I asked patient how he usually transfers at home and if he could go in a wheelchair to the bathroom and tranfer to the toilet. He agreed to this, but stated that he needed a hot breakfast and changed before he answered where he wants to go after discharge. I notified him that we needed to inform [employer] regarding location now and that it couldn't wait because they were on the phone. Then we could help with that. He then gave us an address. Donny CESPEDES took patient to the bathroom, patient was given new clothing and wipes to clean himself up. Patient then was given a bag of chips, cheese stick, and a water.
--- NOTE | 2021-08-30 09:42 | NUR ---
ETA ON [facility] @11AM
--- NOTE | 2021-08-30 10:56 | NUR ---
CANCELLED [facility] PER NURSE @5430
[2021-08-30 10:57] VITALS: BP 105/70
== END 2021-08-30 11:06 | disposition home or self-care (01) ==
LOC: ER 22:55
DX: F10.129 Alcohol abuse with intoxication, unspecified (principal); K21.9 Gastro-esophageal reflux disease without esophagitis; G89.29 Other chronic pain; M54.50 Low back pain, unspecified; F12.90 Cannabis use, unspecified, uncomplicated; Y90.9 Presence of alcohol in blood, level not specified; R41.82 Altered mental status, unspecified; S09.90XA Unspecified injury of head, initial encounter
CPT/HCPCS: 70450; 99284

== ENCOUNTER 2022-01-18 09:47 | Emergency (ER) | payer MEDICARE, MEDICAID ==
[~2022-01-18] VITALS: Ht 177.8 cm; Wt 60.0 kg
[~2022-01-18 09:47] MED LIST changes: -AMIT-189 PO; +AMIT50TA15 PO
[2022-01-18 11:46] VITALS: BP 97/58
== END 2022-01-18 15:37 | disposition left against medical advice (07) ==
LOC: ER 09:48
DX: R05.9 Cough, unspecified (principal); Z53.21 Procedure and treatment not carried out due to patient leaving prior to being seen by health care provider

== ENCOUNTER 2022-08-11 13:34 | Emergency (ER) | payer BC, MEDICAID ==
[~2022-08-11] VITALS: Ht 182.9 cm; Wt 70.5 kg
[~2022-08-11 13:34] MED LIST changes: -AMIT50TA15 PO; +FOLI1TAB27 PO; +LOPE-190 PO; +LOPE2CAP PO; +MAGN500C4 PO; -POLY119P2 PO; +thiamine tablet PO
[2022-08-11] MEDS ORDERED: dexamethasone sod phosphate 10mg/ml inj PO STA (15:09)
[2022-08-11] MEDS ORDERED: AMOX-117 PO (15:42)
[2022-08-11] MEDS ORDERED: BENZ1LOZ74 PO (15:42)
[2022-08-11 16:03] VITALS: BP 156/90
== END 2022-08-11 16:25 | disposition home or self-care (01) ==
LOC: ER 13:35
DX: J02.9 Acute pharyngitis, unspecified (principal); J03.90 Acute tonsillitis, unspecified; K21.9 Gastro-esophageal reflux disease without esophagitis; G89.29 Other chronic pain; M54.9 Dorsalgia, unspecified; F31.9 Bipolar disorder, unspecified; Z79.899 Other long term (current) drug therapy; Z79.1 Long term (current) use of non-steroidal anti-inflammatories (NSAID); Z79.2 Long term (current) use of antibiotics
CPT/HCPCS: 87081; 87880; 99283; J1100

== ENCOUNTER 2022-09-26 16:10 | Emergency (ER) | payer BC, MEDICAID ==
[~2022-09-26] VITALS: Ht 177.8 cm; Wt 72.7 kg
[~2022-09-26 16:10] MED LIST changes: +BENZ1LOZ74 PO
[2022-09-26 16:18] VITALS: BP 152/98; PULSE 103; RESP 16; TEMP 98.3; O2SAT 94
[2022-09-26] MEDS ORDERED: dexamethasone sod phosphate 10mg/ml inj IM STA (17:58)
== END 2022-09-26 18:15 | disposition home or self-care (01) ==
LOC: ER 16:11
DX: J03.90 Acute tonsillitis, unspecified (principal); K21.9 Gastro-esophageal reflux disease without esophagitis; F12.90 Cannabis use, unspecified, uncomplicated; Z79.82 Long term (current) use of aspirin; Z79.899 Other long term (current) drug therapy
CPT/HCPCS: 96372; 99283; J1100

== ENCOUNTER 2022-12-02 11:45 | Emergency (ER) | payer BC, MEDICAID ==
[~2022-12-02] VITALS: Ht 177.8 cm; Wt 61.8 kg
[2022-12-02 11:54] VITALS: TEMP 97.8
[2022-12-02 13:05] VITALS: BP 122/86; PULSE 102; RESP 16; O2SAT 98
[2022-12-02 15:54] LABS: ALANINE AMINOTRANSFERASE 21 U/L (12-78); ALBUMIN 3.3 G/DL (3.4-5.0); ALBUMIN/GLOBULIN RATIO 0.7 (1.1-1.5); ALKALINE PHOSPHATASE 72 IU/L (46-116); ANION GAP 8 (8-16); ASPARTATE AMINO TRANSFERASE 17 U/L (10-37); BILIRUBIN,TOTAL 0.5 MG/DL (0.1-1.0); BLOOD UREA NITROGEN 14 MG/DL (7-18); BUN/CREATININE RATIO 16.9 (10.0-20.0); CHLORIDE 103 MMOL/L (99-107); CREATININE 0.83 MG/DL (0.60-1.10); GLUCOSE 119 MG/DL (70-104); MAGNESIUM 1.4 MG/DL (1.5-2.4); POTASSIUM 3.4 MMOL/L (3.5-5.1); SODIUM 141 MMOL/L (135-145); eCRCL 74 ML/MIN; eGFR > 90 ML/MIN
[2022-12-02 15:58] LABS: CALCIUM 13.2 MG/DL (8.5-10.1)
--- NOTE | 2022-12-02 16:51 | NUR ---
ATTEMPTED TO CALL PATIENT BACK TO ER AT THIS TIME PER ELIZABET GLASERPEAILYN REQUEST TO BE PLACED IN ROOM. PATIENT STATES HE INFORMED THE DESK THAT HE "WANTED TO CHECK OUT" AND STATED "I GOT THE JOB DONE WHILE I WAS THERE AND LEFT".
== END 2022-12-02 16:02 | disposition left against medical advice (07) ==
LOC: ER 11:46
DX: K59.00 Constipation, unspecified (principal); K21.9 Gastro-esophageal reflux disease without esophagitis; G89.29 Other chronic pain; M54.9 Dorsalgia, unspecified; F31.9 Bipolar disorder, unspecified; F12.10 Cannabis abuse, uncomplicated
CPT/HCPCS: 36415; 74018; 80053; 83735; 99284

== ENCOUNTER 2023-01-13 13:13 | Emergency (ER) | payer BC, MEDICAID ==
[~2023-01-13] VITALS: Ht 177.8 cm; Wt 137.0 kg
[2023-01-13 14:35] LABS: BASOPHILS % (AUTO) 0.1 % (0-1); EOSINOPHILS # (AUTO) 0.1 X10'3 (0-0.9); EOSINOPHILS % (AUTO) 0.9 % (0-6); HEMATOCRIT 32.8 % (42.0-52.0); HEMOGLOBIN 10.7 g/dl (14.0-17.9); LYMPHOCYTES # (AUTO) 0.4 X10'3 (1.1-4.8); MEAN CORPUSCULAR HEMOGLOBIN 29.3 PG (27.0-31.0); MEAN CORPUSCULAR HGB CONC 32.7 g/dL (33.0-36.5); MEAN CORPUSCULAR VOLUME 89.5 FL (78-98); MEAN PLATELET VOLUME 7.4 FL (7.4-10.4); MONOCYTES # (AUTO) 0.5 X10'3 (0-0.9); MONOCYTES % (AUTO) 6.6 % (2-12); NEUTROPHILS # (AUTO) 7.2 X10'3 (1.8-7.7); NEUTROPHILS % (AUTO) 87.4 % (42-75); PLATELET COUNT 288 X10'3 (140-440); RED BLOOD COUNT 3.67 X10'6 (4.70-6.10); RED CELL DISTRIBUTION WIDTH 18.8 % (11.5-14.5); WHITE BLOOD COUNT 8.2 X10'3 (4.5-11.0)
[2023-01-13 14:55] LABS: APTT 30 SECONDS (22-32); PROTHROMBIN TIME 10.4 SECONDS (9.0-12.0)
[2023-01-13 14:56] LABS: ALANINE AMINOTRANSFERASE 25 U/L (12-78); ALBUMIN 2.9 G/DL (3.4-5.0); ALBUMIN/GLOBULIN RATIO 0.7 (1.1-1.5); ALKALINE PHOSPHATASE 68 IU/L (46-116); ANION GAP 9 (8-16); ASPARTATE AMINO TRANSFERASE 19 U/L (10-37); BILIRUBIN,TOTAL 0.2 MG/DL (0.1-1.0); BLOOD UREA NITROGEN 13 MG/DL (7-18); CALCIUM 9.2 MG/DL (8.5-10.1); CHLORIDE 107 MMOL/L (99-107); CREATININE 0.62 MG/DL (0.60-1.10); GLUCOSE 92 MG/DL (70-104); POTASSIUM 4.4 MMOL/L (3.5-5.1); SODIUM 142 MMOL/L (135-145); TOTAL CARBON DIOXIDE 26.4 MMOL/L (24-32); TOTAL PROTEIN 7.1 G/DL (6.4-8.2); eCRCL 118 ML/MIN; eGFR > 90 ML/MIN
[2023-01-13 15:00] LABS: ANISOCYTOSIS 2+; ELLIPTOCYTES FEW; PLATELET ESTIMATE NORMAL
[2023-01-13 15:56] VITALS: BP 133/83; PULSE 97; RESP 16; TEMP 99.2; O2SAT 97
== END 2023-01-13 15:58 | disposition home or self-care (01) ==
LOC: ER 13:14
DX: F79 Unspecified intellectual disabilities (principal); G89.29 Other chronic pain; F12.90 Cannabis use, unspecified, uncomplicated; Z79.899 Other long term (current) drug therapy; Z72.89 Other problems related to lifestyle; Z79.82 Long term (current) use of aspirin; Z85.9 Personal history of malignant neoplasm, unspecified
CPT/HCPCS: 36415; 80053; 85008; 85025; 85610; 85730; 86885; 86900; 86901; 93005; 99284

== ENCOUNTER 2023-06-11 09:14 | Emergency (ER) | payer BC, MEDICAID ==
[~2023-06-11] VITALS: Ht 167.6 cm; Wt 46.0 kg
[~2023-06-11 09:14] MED LIST changes: -ASPI-1265 PO; -BENZ1LOZ74 PO; -FOLI0.4T14 PO; -FOLI1TAB27 PO; -LOPE-190 PO; -LOPE2CAP PO; -MAGN500C4 PO; +NO HOME MEDS; -PANT40TA54 PO; -thiamine tablet PO
[2023-06-11 09:36] VITALS: BP 100/67; PULSE 61; RESP 17; TEMP 97.5; O2SAT 94
[2023-06-11] MEDS ORDERED: CEPH-585 PO (09:52)
[2023-06-11] MEDS ORDERED: SULF1TAB49 PO (09:52)
== END 2023-06-11 10:16 | disposition home or self-care (01) ==
LOC: ER 09:14
DX: L02.512 Cutaneous abscess of left hand (principal); K21.9 Gastro-esophageal reflux disease without esophagitis; G89.29 Other chronic pain; M54.9 Dorsalgia, unspecified; F41.9 Anxiety disorder, unspecified; F32.A Depression, unspecified; F12.90 Cannabis use, unspecified, uncomplicated; F10.10 Alcohol abuse, uncomplicated
CPT/HCPCS: 10060; 99283; A6449

== ENCOUNTER 2023-07-31 13:35 | Inpatient (IN) | payer BC, MEDICAID ==
[~2023-07-31] VITALS: Ht 177.8 cm; Wt 50.5 kg
[~2023-07-31 13:35] MED LIST changes: +CEPH-585 PO
[2023-07-31 14:32] LABS: BASOPHILS % (AUTO) 0.3 % (0-1); EOSINOPHILS % (AUTO) 0 % (0-6); HEMATOCRIT 37.3 % (42.0-52.0); LYMPHOCYTES # (AUTO) 0.2 X10'3 (1.1-4.8); LYMPHOCYTES % (AUTO) 1.7 % (21-51); MEAN CORPUSCULAR HEMOGLOBIN 29.1 PG (27.0-31.0); MEAN CORPUSCULAR HGB CONC 32.1 g/dL (33.0-36.5); MEAN CORPUSCULAR VOLUME 90.7 FL (78-98); MEAN PLATELET VOLUME 7.7 FL (7.4-10.4); MONOCYTES # (AUTO) 0.3 X10'3 (0-0.9); MONOCYTES % (AUTO) 2.4 % (2-12); NEUTROPHILS # (AUTO) 10.1 X10'3 (1.8-7.7); NEUTROPHILS % (AUTO) 95.6 % (42-75); PLATELET COUNT 309 X10'3 (140-440); RED BLOOD COUNT 4.11 X10'6 (4.70-6.10); RED CELL DISTRIBUTION WIDTH 17.1 % (11.5-14.5); WHITE BLOOD COUNT 10.6 X10'3 (4.5-11.0)
[2023-07-31 14:44] LABS: ALBUMIN 2.4 G/DL (3.4-5.0); ANION GAP 10 (8-16); BLOOD UREA NITROGEN 20 MG/DL (7-18); CALCIUM 10.1 MG/DL (8.5-10.1); CHLORIDE 99 MMOL/L (99-107); CREATININE 0.77 MG/DL (0.60-1.10); GLUCOSE 114 MG/DL (70-104); POTASSIUM 3.5 MMOL/L (3.5-5.1); SODIUM 138 MMOL/L (135-145); TOTAL CARBON DIOXIDE 28.6 MMOL/L (24-32); eGFR > 90 ML/MIN
[2023-07-31] MEDS: normal saline 1000ml 1,000 ML IV ONE (14:44)
[2023-07-31] MEDS ORDERED: potassium Cl 20 mEq SR tablet PO PRN ×2 (17:05)
[2023-07-31] MEDS ORDERED: magnesium 4gm in 100ml NS 100 ML IV PRN (17:05)
[2023-07-31] MEDS ORDERED: magnesium hydroxide 30ml (MOM) UD suspension PO PRN (17:05)
[2023-07-31] MEDS ORDERED: potassium Cl 40MEQ/1/2NS 520ml 520 ML IV PRN (17:05)
[2023-07-31] MEDS ORDERED: magnesium Cl slow-release 64mg tablet PO PRN (17:05)
[2023-07-31] MEDS ORDERED: acetaminophen 325mg tablet PO PRN (17:05)
[2023-07-31] MEDS ORDERED: magnesium 2GM in 50ml NS 50 ML IV PRN (17:05)
[2023-07-31] MEDS ORDERED: mag hydrox/Alum hydrox/simeth 30ml oral suspension PO PRN (17:05)
[2023-07-31] MEDS: normal saline 1000ml 1,000 ML IV SCH (17:21)
[2023-07-31] MEDS: lactose-reduced food (Ensure Enlive) - 237ml bottle PO SCH (19:45)
[2023-07-31] MEDS: docusate sod 100mg capsule PO SCH (19:58)
[2023-07-31] MEDS: K and/or MAG REPLACEMENT MC SCH (19:58)
[2023-07-31 22:00] VITALS: BP 116/81; PULSE 66; RESP 13; RESP 14; TEMP 97.4; O2SAT 81; O2SAT 93
[2023-07-31 22:10] VITALS: O2SAT 92
[2023-07-31] MEDS ORDERED: PANT-47 PO (22:34)
[2023-08-01] VITALS (26 sets, daily range): BP systolic 87–148; BP diastolic 60–82; PULSE 67–106; RESP 12–20; TEMP 96.9–97.7; O2SAT 88–100
[2023-08-01 06:18] LABS: ALBUMIN 2.1 G/DL (3.4-5.0); ANION GAP 7 (8-16); BLOOD UREA NITROGEN 20 MG/DL (7-18); BUN/CREATININE RATIO 43.5 (10.0-20.0); CALCIUM 9.2 MG/DL (8.5-10.1); CHLORIDE 105 MMOL/L (99-107); CREATININE 0.46 MG/DL (0.60-1.10); GLUCOSE 86 MG/DL (70-104); MAGNESIUM 1.5 MG/DL (1.5-2.4); SODIUM 140 MMOL/L (135-145); TOTAL CARBON DIOXIDE 28.4 MMOL/L (24-32); eCRCL 96 ML/MIN; eGFR > 90 ML/MIN
[2023-08-01 06:20] LABS: BASOPHILS % (AUTO) 0 % (0-1); EOSINOPHILS % (AUTO) 0.2 % (0-6); LYMPHOCYTES # (AUTO) 0.2 X10'3 (1.1-4.8); LYMPHOCYTES % (AUTO) 2.5 % (21-51); MEAN PLATELET VOLUME 7.7 FL (7.4-10.4); MONOCYTES # (AUTO) 0.3 X10'3 (0-0.9); MONOCYTES % (AUTO) 3.6 % (2-12); NEUTROPHILS # (AUTO) 8.8 X10'3 (1.8-7.7); NEUTROPHILS % (AUTO) 93.7 % (42-75)
[2023-08-01 06:51] LABS: HEMOGLOBIN 11.1 g/dl (14.0-17.9); MEAN CORPUSCULAR HEMOGLOBIN 29.1 PG (27.0-31.0); MEAN CORPUSCULAR HGB CONC 32.5 g/dL (33.0-36.5); MEAN CORPUSCULAR VOLUME 89.5 FL (78-98); PLATELET COUNT 271 X10'3 (140-440); RED CELL DISTRIBUTION WIDTH 16.9 % (11.5-14.5); WHITE BLOOD COUNT 8.7 X10'3 (4.5-11.0)
[2023-08-01] MEDS: enoxaparin 40mg/0.4ml syringe SUBCUT SCH (08:00)
[2023-08-01] MEDS ORDERED: pantoprazole 40mg Tablet.DR PO PRN (09:55)
[2023-08-01] MEDS ORDERED: morphine 2 MG/ML inj. syringe IV PRN ×2 (11:30→14:10)
[2023-08-01 12:50] LABS: INR 1.1 INR; PROTHROMBIN TIME 11.9 SECONDS (9.0-12.0)
[2023-08-01] MEDS ORDERED: proCHLORperazine 10 MG/2 ml inj IV PRN (14:10)
[2023-08-01] MEDS ORDERED: ondansetron/PF 4mg/2ml inj IV PRN (14:10)
[2023-08-01] MEDS: acetaminophen 1,000mg/100ml IV 100 ML IV ONE (14:10)
[2023-08-01] MEDS: ringers solution, lacted 1,000 ML IV SCH (14:10)
[2023-08-01] MEDS ORDERED: meperidine/PF 25mg/ml syringe IV PRN ×3 (14:10)
[2023-08-01] MEDS: LIDOcaine 1% (10mg/ml)w/preservative inj. 20ml MDV ONE ×2 (14:12→15:12)
[2023-08-01] MEDS: BUPIVAcaine/PF 2.5mg/ml (0.25%) 10ml vial ONE (14:12)
[2023-08-01] MEDS ORDERED: sevoflurane 250ml liquid IH ONE (14:16)
[2023-08-01] MEDS ORDERED: fentaNYL/PF 50MCG/1 ML 2ML syringe ONE (14:29)
[2023-08-01] MEDS ORDERED: midazolam 1 mg/ML 2ml injection ONE (14:30)
[2023-08-01] MEDS ORDERED: rocuronium 10mg/ml inj IV ONE (14:52)
[2023-08-01] MEDS ORDERED: LIDOcaine 2% (20mg/ml) 5ml vial ONE (14:52)
[2023-08-01] MEDS ORDERED: 0.9 % SODIUM CHLORIDE 10 ML VIAL ONE (14:52)
[2023-08-01] MEDS ORDERED: ePHEDrine 50MG/ML INJ. ONE (14:52)
[2023-08-01] MEDS ORDERED: ceFAZolin 1000mg inj ONE (14:52)
[2023-08-01] MEDS ORDERED: propofol inj 20 ML IV ONE (14:52)
[2023-08-01] MEDS ORDERED: ondansetron/PF 4mg/2ml inj ONE (15:03)
[2023-08-01] MEDS ORDERED: dexamethasone sod phosphate 4mg/ml inj. ONE (15:03)
[2023-08-01] MEDS: BUPIVAcaine 2.5mg/ml inj 50ml vial (contains preservative) ONE (15:14)
[2023-08-01] MEDS ORDERED: neostigmine methylsulfate 1 MG/ML 10ml vial ONE (15:34)
[2023-08-01] MEDS: dextrose 5%-normal saline 1,000 ML IV SCH (19:48)
[2023-08-02 02:00] VITALS: BP 144/52; PULSE 79; RESP 18; TEMP 97.9; O2SAT 97
[2023-08-02 06:00] VITALS: BP 114/83; PULSE 102; RESP 14; TEMP 97.6; O2SAT 99
[2023-08-02 06:20] LABS: BASOPHILS % (AUTO) 0 % (0-1); EOSINOPHILS % (AUTO) 0 % (0-6); HEMATOCRIT 33.5 % (42.0-52.0); HEMOGLOBIN 10.9 g/dl (14.0-17.9); LYMPHOCYTES # (AUTO) 0.2 X10'3 (1.1-4.8); LYMPHOCYTES % (AUTO) 1.4 % (21-51); MEAN CORPUSCULAR HEMOGLOBIN 29.4 PG (27.0-31.0); MEAN CORPUSCULAR HGB CONC 32.5 g/dL (33.0-36.5); MEAN CORPUSCULAR VOLUME 90.6 FL (78-98); MEAN PLATELET VOLUME 8.6 FL (7.4-10.4); MONOCYTES # (AUTO) 0.2 X10'3 (0-0.9); MONOCYTES % (AUTO) 1.9 % (2-12); NEUTROPHILS # (AUTO) 10.2 X10'3 (1.8-7.7); NEUTROPHILS % (AUTO) 96.7 % (42-75); PLATELET COUNT 282 X10'3 (140-440); RED BLOOD COUNT 3.69 X10'6 (4.70-6.10); RED CELL DISTRIBUTION WIDTH 17.7 % (11.5-14.5); WHITE BLOOD COUNT 10.6 X10'3 (4.5-11.0)
[2023-08-02 06:28] LABS: ALBUMIN 1.9 G/DL (3.4-5.0); ANION GAP 7 (8-16); BLOOD UREA NITROGEN 15 MG/DL (7-18); BUN/CREATININE RATIO 29.4 (10.0-20.0); CALCIUM 8.5 MG/DL (8.5-10.1); CHLORIDE 107 MMOL/L (99-107); CREATININE 0.51 MG/DL (0.60-1.10); GLUCOSE 141 MG/DL (70-104); MAGNESIUM 1.4 MG/DL (1.5-2.4); POTASSIUM 3.6 MMOL/L (3.5-5.1); SODIUM 140 MMOL/L (135-145); TOTAL CARBON DIOXIDE 25.8 MMOL/L (24-32); eCRCL 87 ML/MIN; eGFR > 90 ML/MIN
[2023-08-02 08:45] VITALS: RESP 19; O2SAT 99
[2023-08-02] MEDS: HYDROmorphone inj. 0.5 MG/0.5 ML DISP.SYRIN IV PRN (09:12)
[2023-08-02 11:00] VITALS: BP 123/85; PULSE 89; RESP 16; TEMP 98.3; O2SAT 100
[2023-08-02] MEDS ORDERED: acetaminophen 325mg tablet GT PRN (11:31)
[2023-08-02] MEDS ORDERED: magnesium hydroxide 30ml (MOM) UD suspension GT PRN (11:32)
[2023-08-02] MEDS ORDERED: mag hydrox/Alum hydrox/simeth 30ml oral suspension GT PRN (11:32)
[2023-08-02] MEDS ORDERED: lansoprazole 15mg solutab PO PRN (11:34)
[2023-08-02] MEDS ORDERED: POTASSIUM CHLORIDE 20 MEQ/15 ML oral solution GT PRN ×2 (11:38)
[2023-08-02 14:47] LABS: PHOSPHORUS 2.8 MG/DL (2.3-4.5)
[2023-08-02] MEDS ORDERED: magnesium oxide 400mg tablet PO PRN (17:35)
[2023-08-02 18:00] VITALS: BP 124/89; PULSE 109; RESP 22; TEMP 97.4; O2SAT 99
[2023-08-02] MEDS: docusate sodium 100mg/10ml UD cup GT SCH (21:47)
[2023-08-02] MEDS: ondansetron/PF 4mg/2ml inj IV PRN (22:38)
[2023-08-02 22:59] VITALS: BP 121/83; PULSE 107; RESP 20; TEMP 97.8; O2SAT 95
[2023-08-03] MEDS: diazepam inj 5 MG/ML inj. IV PRN (00:15)
[2023-08-03 00:55] VITALS: BP 106/74; PULSE 108; RESP 20; O2SAT 94
[2023-08-03] MEDS: lansoprazole 15mg solutab OGT PRN (02:51)
[2023-08-03 06:11] LABS: BASOPHILS % (AUTO) 0.1 % (0-1); EOSINOPHILS % (AUTO) 0 % (0-6); HEMATOCRIT 37.8 % (42.0-52.0); HEMOGLOBIN 12.3 g/dl (14.0-17.9); LYMPHOCYTES # (AUTO) 0.2 X10'3 (1.1-4.8); LYMPHOCYTES % (AUTO) 1.4 % (21-51); MEAN CORPUSCULAR HEMOGLOBIN 29.3 PG (27.0-31.0); MEAN CORPUSCULAR HGB CONC 32.5 g/dL (33.0-36.5); MEAN PLATELET VOLUME 8.4 FL (7.4-10.4); MONOCYTES # (AUTO) 0.3 X10'3 (0-0.9); MONOCYTES % (AUTO) 2.4 % (2-12); NEUTROPHILS # (AUTO) 10.7 X10'3 (1.8-7.7); NEUTROPHILS % (AUTO) 96.1 % (42-75); PLATELET COUNT 328 X10'3 (140-440); RED CELL DISTRIBUTION WIDTH 17.9 % (11.5-14.5); WHITE BLOOD COUNT 11.2 X10'3 (4.5-11.0)
[2023-08-03 06:21] LABS: ALBUMIN 1.9 G/DL (3.4-5.0); ANION GAP 3 (8-16); BLOOD UREA NITROGEN 16 MG/DL (7-18); BUN/CREATININE RATIO 21.6 (10.0-20.0); CALCIUM 9.2 MG/DL (8.5-10.1); CHLORIDE 107 MMOL/L (99-107); CREATININE 0.74 MG/DL (0.60-1.10); GLUCOSE 201 MG/DL (70-104); MAGNESIUM 1.5 MG/DL (1.5-2.4); PREALBUMIN 8.8 MG/DL (19-36); SODIUM 149 MMOL/L (135-145); TOTAL CARBON DIOXIDE 38.7 MMOL/L (24-32); eCRCL 68 ML/MIN; eGFR > 90 ML/MIN
[2023-08-03 06:57] LABS: POTASSIUM 2.9 MMOL/L (3.5-5.1)
[2023-08-03] MEDS ORDERED: morphine 2 MG/ML inj. syringe IV PRN (07:10)
[2023-08-03 07:16] VITALS: RESP 20
[2023-08-03] MEDS: metoclopramide 5 mg/ml inj IV ONE (07:16)
[2023-08-03] MEDS: normal saline 1000ml 1,000 ML IV ONE ×2 (07:22→08:30)
[2023-08-03] MEDS ORDERED: iohexol 300mg/ml 100ml inj. ONE (07:33)
[2023-08-03] MEDS ORDERED: diatrozoate meglu/diatrozoate sod (37% iodine) 120ML oral solution PO ONE (09:25)
[2023-08-03] MEDS ORDERED: diatr meglu/diatrizoate 30ml oral sol.-(3 dose) bottle PO ONE (09:40)
[2023-08-03] MEDS ORDERED: normal saline 1000ml 1,000 ML IV ONE ×2 (12:00)
[2023-08-03] MEDS ORDERED: morphine 10mg/0.5ml (conc. morphine) oral syringe PO PRN (13:25)
[2023-08-03] MEDS ORDERED: LORazepam 2 mg/ml vial IV PRN (13:25)
== END 2023-08-03 14:30 | DRG 391 ==
LOC: ER 13:37 → ED HOLD 17:07 → SUR 3N 21:56
PROVIDERS: ADMIT Internal Medicine; ATTEND Internal Medicine
PROC: 8E0W4CZ Robotic Assisted Procedure of Trunk Region, Percutaneous Endoscopic Approach (ICD-10-PCS; 2023-08-01)
PROC: 0DH64UZ Insertion of Feeding Device into Stomach, Percutaneous Endoscopic Approach (ICD-10-PCS; principal; 2023-08-01 14:16)
DX: K22.2 Esophageal obstruction (principal); A41.9 Sepsis, unspecified organism; J69.0 Pneumonitis due to inhalation of food and vomit; R65.21 Severe sepsis with septic shock; E43 Unspecified severe protein-calorie malnutrition; C15.9 Malignant neoplasm of esophagus, unspecified; R64 Cachexia; Z68.1 Body mass index [BMI] 19.9 or less, adult; K44.9 Diaphragmatic hernia without obstruction or gangrene; R62.7 Adult failure to thrive; C14.0 Malignant neoplasm of pharynx, unspecified; F32.A Depression, unspecified; F41.9 Anxiety disorder, unspecified; G89.29 Other chronic pain; M54.9 Dorsalgia, unspecified; K21.9 Gastro-esophageal reflux disease without esophagitis; G62.9 Polyneuropathy, unspecified; E86.0 Dehydration; T66.XXXA Radiation sickness, unspecified, initial encounter; Z92.3 Personal history of irradiation; Y93.89 Activity, other specified; Y92.89 Other specified places as the place of occurrence of the external cause; Y99.8 Other external cause status; Z80.1 Family history of malignant neoplasm of trachea, bronchus and lung; Z82.49 Family history of ischemic heart disease and other diseases of the circulatory system; Z51.5 Encounter for palliative care
CPT/HCPCS: 36415; 71045; 74018; 80048; 82948; 83605; 83735; 84100; 84134; 84145; 85025; 85610; 87040; 87081; 92508; 92616; 93005; 97161; 97530; 97535; 99285; A4215; A4314; A4346; A4615; A4618; A4620; A6212; A6213; A6402; A6449; A7000; C1758; G0378; J0690; J1100; J1170; J1650; J2250; J2405; J2704; J2710; J2765; J3010; J3360; J3490; J7030; J7042; J7120; Q9963; Q9967